=== PATIENT | male | born 2000 | race Caucasian/White ===

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

== ENCOUNTER 2022-07-27 12:11 | Outpatient (REF) | payer OTHER, SELFPAY ==
[2022-07-27 14:13] LABS: MANUAL DIFF FLAG NO
[2022-07-27 14:18] LABS: Basophils Percent Auto 0.5 % (0-2); Eosinophils Absolute Auto 0.4 X10*3/uL (0.0-0.4); Eosinophils Percent Auto 5.4 % (0-4); Hematocrit 43.7 % (42.0-52.0); Hemoglobin 14.6 g/dl (14.0-18.0); Imm Gran Abs Auto 0.02 X10*3/uL (0.00-0.03); Imm Gran Pct Auto 0.3 % (0.0-0.4); Lymphocytes Absolute Auto 2.3 X10*3/uL (1.2-4.9); Lymphocytes Percent Auto 35.8 % (20-40); Mean Corpuscular HGB Conc 33.4 g/dl (31.0-36.0); Mean Corpuscular Hemoglobin 28.8 pg (27.0-33.0); Mean Corpuscular Volume 86.2 fL (80.0-98.0); Mean Platelet Volume 9.4 fL (9.4-12.4); Monocytes Absolute Auto 0.5 X10*3/uL (0.1-1.2); Monocytes Percent Auto 7.7 % (2-11); Neutrophils Absolute Auto 3.3 x10*3/uL (2.0-8.3); Neutrophils Percent Auto 50.3 % (45-73); Platelet Count 339 X10*3/uL (160-400); Red Blood Count 5.07 X10*6/uL (4.60-5.80); Red Cell Distribution Width 12.1 % (11.0-16.0); White Blood Count 6.5 X10*3/uL (4.8-10.8)
[2022-07-27 14:30] LABS: Appearance Urine Clear; Color Urine Yellow; Glucose Urine UA Negative (Negative); Leukocyte Esterase Urine Negative (Negative); Nitrite Urine Negative (Negative); PH >= 9.0 (5.0-9.0); Urine Blood Negative (Negative); Urine Ketones Negative (Negative); Urine Protein Negative (Neg-Trace)
[2022-07-27 14:51] LABS: Alanine Aminotransferase 20 U/L (0-40); Albumin Level 5.1 g/dL (3.5-5.0); Alkaline Phosphatase 102 U/L (39-117); Anion Gap 16 (12-20); Aspartate Amino Transferase 21 U/L (5-37); Bilirubin Total 0.8 mg/dL (0.0-1.0); Blood Urea Nitrogen 10 mg/dL (9-16); Calcium 10.4 mg/dL (8.4-10.2); Carbon Dioxide 25 mmol/L (22-29); Chloride 106 mmol/L (96-108); Cholesterol 174 mg/dL; Estimated Glomerular Filt Rate > 60; Glucose Fasting 113 mg/dL (60-99); HDL Cholesterol 44 mg/dL; LDL Cholesterol Calculated 115 mg/dl; Sodium 143 mmol/L (135-145); Total Protein 8.1 g/dL (6.5-8.0); Triglycerides 75 mg/dL
[2022-07-27 14:53] LABS: TSH reflex Free T4 0.87 uIU/mL (0.32-4.0)
== END 2022-07-27 12:12 | disposition home or self-care (01) ==
LOC: HO.HMGCLDS 12:11
PROVIDERS: PCP Nurse Practitioner Family; Visit Provider Nurse Practitioner Family
DX: Z00.00 Encounter for general adult medical examination without abnormal findings (principal)
CPT/HCPCS: 36415; 80053; 80061; 81003; 84443; 85025

== ENCOUNTER 2023-04-28 08:19 | Outpatient (AMB) | payer OTHER, SELFPAY ==
[2023-04-28 08:27] VITALS: BP 130/78; PULSE 59; O2SAT 98; BMI 27.6
--- NOTE | 2023-04-28 08:27 | MHC.PC.OV ---
Vital Signs 04/28/23 08:27 Height 6 ft 1 in Weight 209 lb 4 oz BMI 27.6 BP 130/78 Blood Pressure Location Lt brachial Position Sitting Pulse 59 Pulse Source Pulse Oximeter Pulse Oximetry (%) 98 Oxygen Delivery Method Room Air Intake Visit Reasons: Medication follow up Allergies No Known Allergies [No Known Allergies*] Allergy (Verified 04/28/23 11:40) Medication List - Last Reconciled 04/28/23 [facility] albuterol sulfate 90 mcg/actuation 2 - 6 puffs inhalation Q4H PRN budesonide-formoterol 80-4.5 mcg/actuation (Symbicort) 2 puffs inhalation BID PRN montelukast 10 mg PO DAILY Tobacco use date assessed: 04/28/23 Dental Screening Dental Screen Date: 04/28/23 Did you have a dental visit in the last 12 months?: Yes Did you have a dental problem in the last 6 months where you did not have access to dental care?: No Was dental information given to patient?: Patient has dentist HPI Medication follow up HPI Details Anxiety/depression: Pt is no longer taking medication for this. He reports that his mother reacted well to duloxetine and he would like to try this. Will start 30mg. Pt was seeing a psychiatrist and will get back in with them. Pt reports that he also has a personality disorder. He has a therapist who he sees regularly. Denies any SI and HI. [facility] Medical History (Updated 04/28/23 @ 08:54 by JUDITH Shell) Anxiety Asthma Social History (System 07/27/22 @ 13:26 by Tonia Curry) Housing: House Patient Tobacco Use Status: Never used Tobacco e-Cigarette/Vaping Use: Never Used Second Hand Smoke Exposure: No service: No Current occupational status: employed Current occupation: [employer] Current occupational exposures/hazards: No Cognitive needs: No Hearing needs: No Vision needs: No Questionnaire Thrive Questionnaire Date Thrive assessed: 06/23/22 YOVANI-7 AMB Questionnaire YOVANI-7 Date YOVANI - 7 assessed: 06/23/22 Source: Developed by Drs. Jj Moulton, Nicolasa Mcgovern, Davey Haines and colleagues, with an educational sis from [employer]. Review of Systems Const Reports as per HPI Physical exam (Primary Care) Vital Signs: Last Vital Signs Pulse 59 04/28/23 08:27 BP 130/78 04/28/23 08:27 Pulse Ox 98 04/28/23 08:27 Oxygen Delivery Method Room Air 04/28/23 08:27 BMI result Body Mass Index 27.6 Tobacco/Smoking Status: Tobacco use Status Tobacco use date assessed 04/28/23 04/28/23 08:31 Patient Tobacco Use Status Never used Tobacco 04/28/23 08:31 e-Cigarette/Vaping Use Never Used 04/28/23 08:31 Thrive Assessment: Date of Thrive Assessment Date Thrive assessed 06/23/22 04/28/23 08:31 Const General: cooperative Orientation/consciousness: patient oriented x3 Resp Effort & Inspection: normal respiratory effort Auscultation: clear to auscultation bilaterally Cardio Rate: regular rate Rhythm: regular rhythm Heart sounds: S1 normal heart sound present and S2 normal heart sound present Neuro General: patient oriented x3 Psych Appearance: grossly normal Mental Status: mental status grossly normal Speech and movement: Normal speech and movement present Affect: normal affect Attitude: cooperative Thought process: Normal thought process present Thought content: Normal thought content present Insight: Good insight present (Psych) Judgement: Good judgement present (Psych) Assessment and Plan Assessment & Plan (1) Anxiety: Code(s): F41.9 - Anxiety disorder, unspecified (2) Depression: Code(s): F32.A - Depression, unspecified (3) Personality disorder: Code(s): F60.9 - Personality disorder, unspecified Plan The patient agreed to the use of a medical technologist microbiology for this encounter. Scribed for JUDITH Ansari by Swetha Vargas medical technologist microbiology, on 04/28/2023 at 08:50 EST. Orders: Orders Complete Blood Count Auto Diff Today Z00.00 - Encounter for general adult medical examination without abnormal findings Comprehensive [place]. Panel Fast Today Z00.00 - Encounter for general adult medical examination without abnormal findings TSH reflex Free T4 Today Z00.00 - Encounter for general adult medical examination without abnormal findings UA CC w/rflx Micro + Cult Today Z00.00 - Encounter for general adult medical examination without abnormal findings Lipid Panel Today Z00.00 - Encounter for general adult medical examination without abnormal findings Medications: New duloxetine 30 mg PO DAILY 30 caps 3RF Discontinued venlafaxine ER Discontinued Reason: No Longer Medically Relevant 150 mg PO DAILY 90 days 90 caps 0RF Coding Level of Care Code Est Pt Level 3 (55462) Diagnoses Anxiety F41.9 Depression F32.A Personality disorder F60.9
== END 2023-04-28 09:47 | disposition home or self-care (01) ==
PROVIDERS: Visit Provider Nurse Practitioner Family
DX: F41.9 Anxiety disorder, unspecified (principal); F32.A Depression, unspecified; F60.9 Personality disorder, unspecified
CPT/HCPCS: 99213

== ENCOUNTER 2023-06-28 11:34 | Outpatient (AMB) | payer OTHER, SELFPAY ==
[2023-06-28 11:55] VITALS: BP 132/88; PULSE 61; O2SAT 99; BMI 25.9
--- NOTE | 2023-06-28 11:55 | A.OFFPC_ITS ---
Vital Signs 06/28/23 11:55 Height 6 ft 1 in Weight 196 lb 8 oz BMI 25.9 BP 132/88 Blood Pressure Location Lt brachial Position Sitting Pulse 61 Pulse Source Pulse Oximeter Pulse Oximetry (%) 99 Oxygen Delivery Method Room Air Intake Visit Reasons: Annual PE Allergies No Known Allergies [No Known Allergies*] Allergy (Verified 06/28/23 11:57) Tobacco use date assessed: 06/28/23 Dental Screening Dental Screen Date: 06/28/23 Did you have a dental visit in the last 12 months?: Yes Did you have a dental problem in the last 6 months where you did not have access to dental care?: No Was dental information given to patient?: Patient has dentist HPI Annual PE HPI Details Pt is here for a PE. Will order labs. PFSH Medical History Asthma Anxiety Social History Housing: House Patient Tobacco Use Status: Never used Tobacco e-Cigarette/Vaping Use: Never Used Second Hand Smoke Exposure: No service: No Current occupational status: employed Current occupation: [employer] Current occupational exposures/hazards: No Cognitive needs: No Hearing needs: No Vision needs: No Questionnaire Thrive Questionnaire Date Thrive assessed: 06/23/22 YOVANI-7 AMB Questionnaire YOVANI-7 Date YOVANI - 7 assessed: 06/23/22 Source: Developed by Drs. Jj Moulton, Nicolasa Mcgovern, Davey Haines and colleagues, with an educational sis from [email or web address]. Review of Systems Const Denies chills and Denies fever(s) Eyes Denies blurry vision ENT Denies vertigo, Denies dizziness and Denies sore throat Card Denies chest pain at rest, Denies chest pain with activity, Denies diaphoresis, Denies dyspnea and Denies dyspnea on exertion Resp Denies cough, Denies dyspnea, Denies dyspnea on exertion and Denies wheezing GI Denies abdominal pain, Denies melena, Denies hematochezia, Denies constipation, Denies diarrhea and Denies loose stools Denies hematuria Musc Denies numbness and Denies tingling Skin/Breast Denies lesions Neuro Denies vertigo, Denies dizziness, Denies numbness and Denies tingling Psych Denies anxiety, Denies depression, Denies homicidal ideation, Denies suicidal ideation and Denies other (substance abuse) Aller/Immun Denies wheezing Physical exam (Primary Care) Vital Signs: Last Vital Signs Pulse 61 06/28/23 11:55 BP 132/88 06/28/23 11:55 Pulse Ox 99 06/28/23 11:55 Oxygen Delivery Method Room Air 06/28/23 11:55 BMI result Body Mass Index 25.9 Tobacco/Smoking Status: Tobacco use Status Tobacco use date assessed 06/28/23 06/28/23 11:59 Patient Tobacco Use Status Never used Tobacco 06/28/23 11:59 e-Cigarette/Vaping Use Never Used 06/28/23 11:59 Thrive Assessment: Date of Thrive Assessment Date Thrive assessed 06/23/22 06/28/23 11:59 Const General: cooperative Nutritional Appearance: well nourished Orientation/consciousness: patient oriented x3 HENMT Head: Yes normal to inspection, Yes normocephalic and Yes atraumatic Ears: TM's normal bilaterally Eyes General: appearance normal, both eyes and all related structures Alignment and Position: alignment normal and position normal Neck Neck: Yes normal visual inspection and Yes no lymphadenopathy Thyroid: Thyroid normal Resp Effort & Inspection: normal respiratory effort Auscultation: clear to auscultation bilaterally Cardio Rate: regular rate Rhythm: regular rhythm Heart sounds: S1 normal heart sound present, S2 normal heart sound present and no murmurs GI Palpation (GI): Soft to palpation and nontender Auscultation: normal bowel sounds Male General Exam: Yes normal external exam Penis: normal penis Scrotum: scrotum normal, testes descended bilaterally (small testicles noted bilat) and no inguinal hernias Testes: no testicular mass Skin Rashes: no rashes Neuro General: patient oriented x3, moves all extremities, no focal motor deficits and deep tendon reflexes 2+ bilaterally Romberg Test: Negative Psych Appearance: grossly normal Mental Status: mental status grossly normal Speech and movement: Normal speech and movement present Affect: normal affect Attitude: cooperative Thought process: Normal thought process present Thought content: Normal thought content present Insight: Good insight present (Psych) Judgement: Good judgement present (Psych) Assessment and Plan Assessment & Plan (1) Physical exam: Code(s): Z00.00 - Encounter for general adult medical examination without abnormal findings Plan The patient agreed to the use of a remote medical coder for this encounter. Scribed for JUDITH Ansari by Swetha Vargas remote medical coder, on 06/28/2023 at 12:10 EST Coding Level of Care Code Est Pt Level 3 (04812) Diagnoses Physical exam Z00.00
== END 2023-06-28 12:32 | disposition home or self-care (01) ==
PROVIDERS: Visit Provider Nurse Practitioner Family
DX: Z00.00 Encounter for general adult medical examination without abnormal findings (principal)
CPT/HCPCS: 99395

== ENCOUNTER 2023-11-08 14:27 | Outpatient (AMB) | payer OTHER, SELFPAY ==
[2023-11-08 14:30] VITALS: BP 140/80; PULSE 65; TEMP 36.8; O2SAT 98; BMI 24.7
--- NOTE | 2023-11-08 14:30 | AM.OFFWIN_ITS ---
Intake Vital Signs 11/08/23 14:30 Height 6 ft 1 in Weight 187 lb BMI 24.7 BP 140/80 H Blood Pressure Location Lt brachial Position Sitting Pulse 65 Pulse Source Pulse Oximeter Temp 98.3 F Temp Source Temporal Artery Scan Pulse Oximetry (%) 98 Oxygen Delivery Method Room Air Intake Visit Reasons: EP wheezing congestion fatigue 7 days Intake Note: pt is her today for wheezing congestion fatigue for 7 days Patient Tobacco Use Status: Never used Tobacco Allergies No Known Allergies [No Known Allergies*] Allergy (Verified 01/04/24 09:05) Medication List - Last Reconciled 11/08/23 by Shaka Gusman MD albuterol sulfate 90 mcg/actuation 2 - 6 puffs inhalation Q4H PRN amoxicillin-pot clavulanate 875-125 mg 1 tab PO BID budesonide-formoterol 80-4.5 mcg/actuation (Symbicort) 2 puffs inhalation BID duloxetine 30 mg PO DAILY prednisone 60 mg (3 x 20 mg) PO DAILY Do you need a note to return to daycare/school/sports/work: No HPI EP wheezing congestion fatigue 7 days HPI Details 23 yr old male presents to the office fo r a sick visit. He is reporting symptoms of wheezing, non productive cough. No fever or chills. History of Asthma. 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 [facility]LY [facility] Medical History (Updated 01/04/24 @ 09:42 by Ani Kraus, [facility]) Depression Personality disorder Asthma Anxiety Social History Housing: House Patient Tobacco Use Status: Never used Tobacco e-Cigarette/Vaping Use: Never Used Second Hand Smoke Exposure: No service: No Current occupational status: employed Current occupation: [employer] Current occupational exposures/hazards: No Cognitive needs: No Hearing needs: No Vision needs: No Physical Exam Vital Signs: Last Vital Signs Temp 98.3 F 11/08/23 14:30 Pulse 65 11/08/23 14:30 BP 140/80 H 11/08/23 14:30 Pulse Ox 98 11/08/23 14:30 Oxygen Delivery Method Room Air 11/08/23 14:30 BMI result Body Mass Index 24.7 Const General: cooperative and healthy appearing Nutritional Appearance: well nourished Orientation/consciousness: patient oriented x3 Limitations: no limitations HEENT Head: Yes normal to inspection Eyes General: appearance normal, both eyes and all related structures Neck Neck: Yes normal visual inspection Chest Chest palpation & inspection: normal palpation of entire chest wall Resp Other: Scattered wheezing bilaterally. Neuro General: patient oriented x3 Assessment & Plan Assessment & Plan (1) Asthma: Code(s): J45.909 - Unspecified asthma, uncomplicated Plan: Antibiotic called in. Prednisone dosage increased to 60 mg a day and steroid inhaler called in. If sx not better to follow up here. Medications: New prednisone 60 mg (3 x 20 mg) PO DAILY 9 tabs 0RF Changed From budesonide-formoterol 80-4.5 mcg/actuation 2 puffs inhalation BID PRN To budesonide-formoterol 80-4.5 mcg/actuation (Symbicort) 2 puffs inhalation BID 10.2 grams 0RF Coding Level of Care Code Est Pt Level 3 (56141) Diagnoses Asthma J45.909
== END 2023-11-08 15:00 | disposition home or self-care (01) ==
PROVIDERS: PCP Nurse Practitioner Family; Visit Provider Internal Medicine
DX: J45.909 Unspecified asthma, uncomplicated (principal)
CPT/HCPCS: 99213

== ENCOUNTER 2023-11-11 09:08 | Outpatient (AMB) | payer OTHER, SELFPAY ==
[2023-11-11 09:50] VITALS: BP 126/90; PULSE 80; TEMP 36.6; O2SAT 98; BMI 23.7
--- NOTE | 2023-11-11 09:50 | AM.OFFWIN_ITS ---
Intake Vital Signs 11/11/23 09:50 Height 6 ft 1 in Weight 180 lb BMI 23.7 BP 126/90 H Blood Pressure Location Lt brachial Position Sitting Pulse 80 Pulse Source Pulse Oximeter Temp 97.8 F Temp Source Temporal Artery Scan Pulse Oximetry (%) 98 Intake Visit Reasons: EST/chest pain/ trouble breathing(lobby) Intake Note: pt is here today for chest pain trouble breathing started 1 week ago Patient Tobacco Use Status: Never used Tobacco Allergies No Known Allergies [No Known Allergies*] Allergy (Verified 11/11/23 09:51) Do you need a note to return to daycare/school/sports/work: Yes HPI HPI Comments History of Present Illness Details 23 y/o male patient presents to walk in clinic with c/o SOB and chest pains x 1 week. H/o well controlled Asthma, now with exacerbation due to Dust (he was cleaning his garage) Pt was previously seen here (walk in clinic) and given Abx and steroids. He reports going to another a day later, because the medicine was not working. He was also seen by his Rn Ent at [facility], 11/09 who also prescribed more steroids (Oral/Systemic). Pt reports not taking any of those medications because he believes nothing is working for him. Chest Xray was ordered then, and came back negative for infection. He went to Emergency room yesterday night and waited 8 hours and left without being seen. Pt and mother very frustrated today, stating that no one wants to help them, he is having trouble breathing I'm actually trying to catch my breath now . The albuterol Inhaler and Treatments not working at all. Pt and mother are adamant that they don't want to go ED, only to sit there for 20 hours. [facility] Medical History Asthma Anxiety Social History Housing: House Patient Tobacco Use Status: Never used Tobacco e-Cigarette/Vaping Use: Never Used Second Hand Smoke Exposure: No service: No Current occupational status: employed Current occupation: [employer] Current occupational exposures/hazards: No Cognitive needs: No Hearing needs: No Vision needs: No Review of Systems Const All systems reviewed & are unremarkable except as noted in HPI and below Physical Exam Vital Signs: Last Vital Signs Temp 97.8 F 11/11/23 09:50 Pulse 80 11/11/23 09:50 BP 126/90 H 11/11/23 09:50 Pulse Ox 98 11/11/23 09:50 BMI result Body Mass Index 23.7 Const General: healthy appearing, comfortable and no acute distress Orientation/consciousness: patient oriented x3 HEENT Head: Yes normocephalic Resp Other: Patient able to talk in full complete sentences without runnning out of breath. SAT's 98% in room air. No signs of distress. Effort & Inspection: normal respiratory effort and able to speak in complete sentences Auscultation: wheezes scattered wheezes Cardio Rate: regular rate Rhythm: regular rhythm Neuro General: patient oriented x3 Gait exam (Neuro): Normal gait present Psych Appearance: grossly normal Speech and movement: Normal speech and movement present Affect: Indifferent affect present Thought content: Normal thought content present Assessment & Plan Assessment & Plan (1) Asthma: Code(s): J45.909 - Unspecified asthma, uncomplicated Qualifiers: Asthma severity: moderate Asthma persistence: persistent Asthma complication type: with acute exacerbation Qualified Code(s): J45.41 - Moderate persistent asthma with (acute) exacerbation Plan: - Advised Pt to go to ED for further testing, since non of the outpatient medications are working for him - Advised to take medications given in order to get better - No need for any additional medications from UC today. - Mother asking for DuoNeb for home use, since this is the only thing that worked in the past when she patient was toddler. Medications: New ipratropium-albuterol 20-100 mcg/actuation 1 puff inhalation Q6H 4 grams 0RF J45.41 - Moderate persistent asthma with (acute) exacerbation Coding Level of Care Code Est Pt Level 3 (38479) Diagnoses Moderate persistent asthma with acute exacerbation J45.41 Asthma severity: moderate Asthma persistence: persistent Asthma complication type: with acute exacerbation Time Spent (min) 15
== END 2023-11-11 11:05 | disposition home or self-care (01) ==
PROVIDERS: PCP Nurse Practitioner Family; Visit Provider Nurse Practitioner Family
DX: J45.41 Moderate persistent asthma with (acute) exacerbation (principal)
CPT/HCPCS: 99213

== ENCOUNTER 2023-11-11 12:18 | Emergency (ER) | payer OTHER, SELFPAY ==
--- NOTE | ~2023-11-11 | XR_ITS ---
EXAMINATION: XR CHEST CLINICAL INFORMATION: Difficulty breathing and wheezing COMPARISON: Previous chest x-ray September 2017 TECHNIQUE: 2 views of the chest were obtained. FINDINGS: No significant abnormality is noted involving the heart, lungs, mediastinum, bony thorax or soft tissues. XR/XR chest 2V IMPRESSION: Unremarkable examination.
--- NOTE | 2023-11-11 12:23 | ECG_ITS ---
Test Reason : CP/SOB Blood Pressure : / mmHG Vent. Rate : 067 BPM Atrial Rate : 067 BPM P-R Int : 146 ms QRS Dur : 090 ms QT Int : 368 ms P-R-T Axes : 061 075 028 degrees QTc Int : 388 ms Normal sinus rhythm Nonspecific T wave abnormality Abnormal ECG No previous ECGs available Referred By: Generic ED Physician Electronically Signed By:Moses Jameson
[2023-11-11 12:29] VITALS: BP 174/98; PULSE 71; O2SAT 98
[2023-11-11 12:40] VITALS: BP 142/80; PULSE 67; RESP 18; TEMP 36.1; O2SAT 97; BMI 23.3
--- NOTE | 2023-11-11 12:40 | ED_ITS ---
HPI - General Adult General Chief complaint: General Medical Stated complaint: CHEST PAIN SOB X 10 DAYS Time Seen by Provider: 11/11/23 17:36 Source: patient Mode of arrival: ambulatory Limitations: no limitations History of Present Illness HPI narrative: Patient comes accompanied by his mother complaining of shortness of breath for 10 days, chest pain right in the sternal area which gets worse with deep inspiration. Patient states he is known to have asthma, has been taking prednisone for about 10 days and has been using albuterol nebulization treatments. Patient also reports sore throat Related Data Home Medications Medication Instructions Recorded Confirmed albuterol sulfate 90 mcg/actuation 2 - 6 puff inhalation Q4H PRN 06/23/22 11/08/23 aerosol inhaler wheezing Previous Rx's Medication Instructions Recorded duloxetine 30 mg capsule,delayed 30 mg PO DAILY #30 caps 04/28/23 release budesonide-formoterol HFA 80 2 puff inhalation BID #10.2 grams 11/08/23 mcg-4.5 mcg/actuation aerosol inhaler (Symbicort) ipratropium 20 mcg-albuterol 100 1 puff inhalation Q6H #4 grams 11/11/23 mcg/actuation mist for inhalation Allergies Allergy/AdvReac Type Severity Reaction Status Date / Time No Known Allergies Allergy Verified 11/11/23 09:51 [No Known Allergies*] Review of Systems 2 Review of Systems: Constitutional : No Weight loss, No Fever, No Chills, No Night Sweats, No Fatigue, No Malaise ENT/Mouth : No Hearing loss, No Ear Pain, No Nasal Congestion, No Sinus Pain, No Hoarseness, No sore throat, No Rhinorrhea, No Swallowing Difficulty Eyes: No Eye Pain, No Swelling, No Redness, No Foreign Body, No Discharge, No Vision Changes Cardiovascular : Complaining of substernal chest pain with inspiration, No SOB, No Dyspnea on Exertion, No Orthopnea, No Edema, No Palpitations Respiratory : Complaining of cough, wheezing, dyspnea Gastrointestinal : No Nausea, No Vomiting, No Diarrhea, No Constipation, No abdominal Pain, No Hematochezia, No Melena Genitourinary : no irregular bleeding, No Dysuria, No Urinary Frequency, No Hematuria, No Urinary Incontinence, No Urgency, No Flank Pain, No Urinary Flow Changes, No Hesitancy Musculoskeletal : No joint pain, No Myalgias, No Joint Swelling Skin : No Skin Lesions, No rash Neuro : No Weakness, No Numbness, No Paresthesias, No Loss of Consciousness, No Dizziness, No Headache Psych : No Anxiety/Panic, No Depression, No SI/HI/AH/VH, No Social Issues, Heme/Lymph: No Bruising, No Bleeding,No Lymphadenopathy Endocrine : No Polyuria, No Polydipsia, No Temperature Intolerance [facility] Past Medical History Medical History Asthma Anxiety Social History Social History Housing: House Patient Tobacco Use Status: Never used Tobacco e-Cigarette/Vaping Use: Never Used Second Hand Smoke Exposure: No Advance Directives: No Advance Directives Information Provided: No service: No Current occupational status: employed Current occupation: [employer] Current occupational exposures/hazards: No Cognitive needs: No Hearing needs: No Vision needs: No Physical Exam ED Vital Signs: Vital Signs - 24 hr 11/11/23 12:40 11/11/23 17:24 11/11/23 18:01 Temperature 97 F 97.3 F Pulse Rate 67 84 74 Respiratory Rate 18 18 12 Blood Pressure 142/80 H 146/76 H Pulse Oximetry 97 99 Oxygen Delivery Method Room Air Room Air 11/11/23 18:43 Temperature 98.1 F Pulse Rate 60 Respiratory Rate 18 Blood Pressure 149/87 H Pulse Oximetry 100 Oxygen Delivery Method Room Air BMI result Body Mass Index 23.3 Const Other: Appearance: Alert. Oriented X3. No acute distress. Well-appearing Eyes: Pupils equal, round and reactive to light. ENT: Pharynx normal. Neck: Normal inspection. Neck supple. No lymph nodes noted. No crepitus CVS: Normal heart rate and rhythm. Pulses normal. Normal S1 and S2, reproducible chest pain to mild palpation over the sternum Respiratory: No respiratory distress. Breath sounds normal. Patient having forceful inspiratory wheezing at the throat level, no expiratory wheezing in the lungs Abdomen: Soft and nontender. No rigidity. No distention. Skin: Skin warm and dry. Normal skin color. Normal skin turgor. Extremities: No lower extremity edema. No Lacerations. No Rash Neuro: Oriented X 3. No motor deficit. No sensory deficit. Moving all extremities. No slurred speech. CN 2 through 12 grossly intact Psych: calm, cooperative, anxious Course Course Course Narrative: RME:? 23 yo male with hx of asthma, depression, anxiety, personality disorder here for evaluation of chest pain and difficulty breathing x10 days. Now reports difficulty swallowing . Per mother, he has been worked up by PCP, silica spray mixer and was seen at [facility] ED last night. They did not stay for results. Called silica spray mixer today who told them to come to the ED for clot r/o. Has been using daily Symbicort, albuterol rescue inhaler, and nebulizer every 6 hours without improvement. last used albuterol at 4:00 a.m. today. No recent travel or long car rides. Denies calf pain, palpitations. Endorses smoking marijuana for 3 years. Quit a few months ago. Denies tobacco use or vaping. Vitals WNL. Bilateral wheezes and rhonchi. Airway patent. Posterior oropharynx without erythema or edema. Uvula midline. Controlling secretions and speaking complete sentences. Labs, COVID swab, EKG, chest x-ray ordered Full HPI, ROS and PE to be performed by the primary ED provider. Medications Administered Discontinued Medications Generic Name Dose Route Start Last Admin Trade Name Freq PRN Reason Stop Dose Admin Albuterol Sulfate 2.5 mg 11/11/23 17:49 11/11/23 18:01 Albuterol Sulfate (0.083%) 2.5 Mg/3 Ml Vial.Neb INHALE 11/11/23 17:50 2.5 mg ONCE ONE Administration Methylprednisolone Sodium Succinate 125 mg 11/11/23 17:50 11/11/23 18:23 Methylprednisolone Sod Succ 125 Mg/2 Ml Vial IVPUSH 11/11/23 17:51 125 mg ONCE ONE Administration Medical Decision Making Medical Decision Making [facility] Narrative: -on physical exam, patient is well-appearing, oxygen saturation 99% on room air. Patient's lungs are completely clear, no wheezing. Seems that patient is forcing himself to wheeze as the wheezing versus come from the throat rather from the lungs. Strep test is negative -my interpretation of chest x-ray: No infiltrates -my interpretation of EKG: Normal sinus rhythm, heart rate 67, no ST segment depression or elevation, nonspecific T-wave inversion in lead 3, QTC 388 -my interpretation of labs, patient's white blood cell count 13.9, likely secondary to 10 days of prednisone use. D-dimer negative, troponin negative, C- reactive protein negative, ESR negative, serology test negative for COVID -patient's seems to be very anxious, patient's mother even more so. Per patient's mother's request, we will give him 1 dose of Solu-Medrol and 1 neb treatment -patient will follow-up with his silica spray mixer -patient was given a prescription of prednisone 2 days ago, patient still has 4 more days to go. Also, on November 09, patient was given a large prescription of albuterol for his nebulizer and pumps Differential Diagnosis Differential Diagnoses: The differential diagnosis associated with the presentation includes (Viral illness, pneumonia, pleurisy) Lab Data MDM Lab Attestation statement: I reviewed the patient's lab results. 11/11/23 14:03 Labs: Lab Results 11/11/23 11/11/23 11/11/23 Range/Units 14:03 17:36 18:46 WBC 13.9 H (4.8-10.8) X10*3/uL RBC 4.92 (4.60-5.80) X10*6/uL Hgb 14.9 (14.0-18.0) g/dl Hct 42.3 (42.0-52.0) % MCV 86.0 (80.0-98.0) fL MCH 30.3 (27.0-33.0) pg MCHC 35.2 (31.0-36.0) g/dl RDW 12.4 (11.0-16.0) % Plt Count 372 (160-400) X10*3/uL MPV 9.2 L (9.4-12.4) fL Immature Gran % (Auto) 0.4 (0.0-0.4) % Neut % (Auto) 55.3 (45-73) % Lymph % (Auto) 34.4 (20-40) % [place] % (Auto) 8.6 (2-11) % Eos % (Auto) 0.9 (0-4) % Baso % (Auto) 0.4 (0-2) % Lymph # (Auto) 4.8 (1.2-4.9) X10*3/uL [place] # (Auto) 1.2 (0.1-1.2) X10*3/uL Eos # (Auto) 0.1 (0.0-0.4) X10*3/uL Baso # (Auto) 0.1 (0.0-0.2) X10*3/uL Abs Immat Gran (auto) 0.05 H (0.00-0.03) X10*3/uL Absolute Neuts (auto) 7.7 (2.0-8.3) x10*3/uL Absolute Nucleated RBC 0.000 (0.0-0.012) X10*3/uL Nucleated RBC % (auto) 0.0 (0.0-0.2) /100WBC ESR 2 (0-15) MM/HR PT 13.0 (11.1-13.3) SEC INR 1.1 (0.9-1.1) D-Dimer High Sensitivty < 150 NG/ML Troponin I High Sens 10.1 11.1 (<3.5-35.0) ng/L C-Reactive Protein 0.13 (< or = 0.50) mg/dL COVID-19 (DANTE) Negative (Negative) COVID-19 Clin Com See Note S. pyogenes GrpA FERNANDO Negative (Negative) Independent Interpretation I performed an independent interpretation of an: EKG and Plain X-Ray Radiology Impression Discussion of test interpretation with radiology: I have reviewed the radiologist's reading. Radiologist Impression: FINDINGS: No significant abnormality is noted involving the heart, lungs, mediastinum, bony thorax or soft tissues. XR/XR chest 2V IMPRESSION: Unremarkable examination. Independent Historian Clinical information obtained from an independent historian. History obtained from or confirmed by: Parent Chronic Conditions Patient?s care impacted by: Other (Asthma) Discharge Plan Discharge Clinical Impression: Asthma, Pleurisy Patient Disposition: Home, Self-Care Instructions: Asthma (ED) Additional Instructions: I have personally provided critical care time. Time includes review of lab data, radiology results, discussion with consultants, and monitoring for potential decompensation. Intervention performed as documented. Prescriptions: No Action budesonide-formoterol [Symbicort] 80-4.5 mcg/actuation HFA aerosol inhaler 2 puff inhalation BID Qty: 10.2 0RF ipratropium-albuterol 20-100 mcg/actuation mist 1 puff inhalation Q6H Qty: 4 0RF albuterol sulfate 90 mcg/actuation HFA aerosol inhaler 2 - 6 puff inhalation Q4H PRN (Reason: wheezing) duloxetine 30 mg capsule,delayed release(DR/EC) 30 mg PO DAILY Qty: 30 3RF
[2023-11-11 14:13] LABS: MANUAL DIFF FLAG NO
[2023-11-11 14:16] LABS: Basophils Absolute Auto 0.1 X10*3/uL (0.0-0.2); Basophils Percent Auto 0.4 % (0-2); Eosinophils Absolute Auto 0.1 X10*3/uL (0.0-0.4); Eosinophils Percent Auto 0.9 % (0-4); Hematocrit 42.3 % (42.0-52.0); Hemoglobin 14.9 g/dl (14.0-18.0); Imm Gran Abs Auto 0.05 X10*3/uL (0.00-0.03); Imm Gran Pct Auto 0.4 % (0.0-0.4); Lymphocytes Absolute Auto 4.8 X10*3/uL (1.2-4.9); Lymphocytes Percent Auto 34.4 % (20-40); Mean Corpuscular HGB Conc 35.2 g/dl (31.0-36.0); Mean Corpuscular Hemoglobin 30.3 pg (27.0-33.0); Mean Platelet Volume 9.2 fL (9.4-12.4); Monocytes Absolute Auto 1.2 X10*3/uL (0.1-1.2); Monocytes Percent Auto 8.6 % (2-11); Neutrophils Absolute Auto 7.7 x10*3/uL (2.0-8.3); Neutrophils Percent Auto 55.3 % (45-73); Platelet Count 372 X10*3/uL (160-400); Red Blood Count 4.92 X10*6/uL (4.60-5.80); Red Cell Distribution Width 12.4 % (11.0-16.0); White Blood Count 13.9 X10*3/uL (4.8-10.8)
[2023-11-11 14:21] LABS: INTERNATIONAL NORM RATIO 1.1 (0.9-1.1)
[2023-11-11 14:23] LABS: D Dimer High Sensitivity < 150 NG/ML
[2023-11-11 14:29] LABS: COVID-19 Test Negative (Negative); IDNOW Serial# 9DB6401D
[2023-11-11 14:37] LABS: C Reactive Protein 0.13 mg/dL (< or = 0.50)
[2023-11-11 14:47] LABS: Troponin-I High Sensitivity 10.1 ng/L (<3.5-35.0)
[2023-11-11 14:58] LABS: Erythrocyte Sedimentation Rate 2 MM/HR (0-15)
[2023-11-11 17:24] VITALS: BP 146/76; PULSE 84; RESP 18; TEMP 36.3; O2SAT 99
[2023-11-11 18:01] VITALS: PULSE 74; RESP 12; O2SAT 99
[2023-11-11] MEDS: Albuterol Sulfate (0.083%) 2.5 MG/3 ML VIAL.NEB INHALE (18:01)
[2023-11-11 18:02] LABS: Troponin-I High Sensitivity 11.1 ng/L (<3.5-35.0)
[2023-11-11] MEDS: methylPREDNISolone Sod Succ 125 MG/2 ML VIAL IVPUSH (18:23)
[2023-11-11 18:43] VITALS: BP 149/87; PULSE 60; RESP 18; TEMP 36.7; O2SAT 100
[2023-11-11 19:05] LABS: IDNOW Serial# 08D9AD1C; Strep A Nucleic Acid Negative (Negative)
== END 2023-11-11 19:57 | disposition home or self-care (01) ==
PROVIDERS: Physician Assistant Medical; Emergency Provider Emergency Medicine
DX: R07.89 Other chest pain (principal); R06.02 Shortness of breath; J45.909 Unspecified asthma, uncomplicated; R09.1 Pleurisy; Z11.52 Encounter for screening for COVID-19; Z79.899 Other long term (current) drug therapy
CPT/HCPCS: 36415; 71046; 84484; 85025; 85379; 85610; 85652; 86140; 87635; 87651; 93005; 94640; 96374; 99284; J2930

== ENCOUNTER → 2023-11-11 12:23 | Outpatient (BNV) | payer OTHER, SELFPAY | PROVIDERS: Visit Provider Internal Medicine Cardiovascular Disease | DX: R94.31 Abnormal electrocardiogram [ECG] [EKG] (principal) | CPT/HCPCS: 93010 ==

== ENCOUNTER 2024-01-04 08:31 | Outpatient (AMB) | payer OTHER, SELFPAY ==
--- NOTE | 2024-01-04 08:35 | MHC.PC.OV ---
Vital Signs 01/04/24 08:41 Height 6 ft 1.23 in Weight 182 lb 4 oz BMI 23.9 BP 128/66 Blood Pressure Location Rt brachial Position Sitting Respiration 14 Pulse 62 Pulse Source Pulse Oximeter Temp 97.9 F Temp Source Temporal Artery Scan Pulse Oximetry (%) 97 Oxygen Delivery Method Room Air Intake Visit Reasons: Transfer care from [facility] Note: New patient visit Electronic Resources Librarian Required: No Allergies No Known Allergies [No Known Allergies*] Allergy (Verified 01/04/24 09:05) Medication List - Last Reconciled 01/04/24 by Ani Kraus, KAYLYNN-HALEY budesonide-formoterol 80-4.5 mcg/actuation (Symbicort) 2 puffs inhalation BID duloxetine 60 mg PO DAILY ipratropium-albuterol 20-100 mcg/actuation 1 puff inhalation Q6H montelukast (Singulair) 10 mg PO BEDTIME Tobacco use date assessed: 01/04/24 Dental Screening Dental Screen Date: 01/04/24 Did you have a dental visit in the last 12 months?: Yes Did you have a dental problem in the last 6 months where you did not have access to dental care?: No Was dental information given to patient?: Patient has dentist HPI HPI Comments History of Present Illness Details 23-year-old with generalized anxiety disorder, MDD, asthma Specialists: Counselor Pulm - annual visits only Health Maintenance: Vaccines - Flu today Here today to [facility] care Asthma is well controlled; exercises QD; has Neb but doesnt like to use s/t side effects. Does not have a HFA; did have Combivent RXd 10/2023 but ran out. Reports it worked well for him. Has singulair but has run out. Feels this has also helped well. MDD/YOVANI on Cymbalta. Active w/ counselor. Has trouble sleeping at night. Has lots of anxiety and perseveration of thoughts that occur at bedtime. Using [id number] sleep aid. Reports without this he has not able to go to bed until around 04:00. [facility] Medical History (Updated 01/04/24 @ 09:42 by KAYLYNN Zavala-HALEY) Depression Personality disorder Asthma Anxiety Social History Housing: House Patient Tobacco Use Status: Never used Tobacco e-Cigarette/Vaping Use: Never Used Second Hand Smoke Exposure: No service: No Current occupational status: employed Current occupation: [employer] Current occupational exposures/hazards: No Cognitive needs: No Hearing needs: No Vision needs: No Questionnaire PHQ-9 Over the last 2 weeks, how often have you been bothered by any of the following problems? 1. Little interest or pleasure in doing things: several days 2. Feeling down, depressed, or hopeless: several days 3. Trouble falling or staying asleep, or sleeping too much: more than half the days 4. Feeling tired or having little energy: not at all 5. Poor appetite or overeating: not at all 6. Feeling bad about yourself - or that you are a failure or have let yourself or your family down: not at all 7. Trouble concentrating on things, such as reading the newspaper or watching television: not at all 8. Moving or speaking so slowly that other people could have noticed. Or the opposite - being so fidgety or restless that you have been moving around a lot more than usual: not at all 9. Thoughts that you would be better off or of hurting yourself in some way: not at all Total score: 4 Depression Screening Interpretation: Positive Depression Screening Follow-up: Existing condition Depression Screening Done: Yes 83907 - PHQ-9 Billing: Yes Source: Developed by Drs. Jj Moulton, Nicolasa Mcgovern, Davey Haines and colleagues, with an educational sis from [employer]. Thrive Questionnaire Date Thrive assessed: 01/04/24 I am a: Patient What is your living situation today?: I have a steady place to live Within the past 12 months, did the food you bought not last and you didn't have the money to get more?: Never true Within the past 12 months, did you worry whether your food would run out before you got money to buy more?: Never true Do you have trouble paying for medicines?: No Do you have trouble getting transportation to medical appointments?: No Do you have trouble paying your heating and electricity bill?: No Do you have trouble taking care of your child, family member or friend?: No Do you have trouble with day-to-day activities such as bathing, preparing meals, shopping, managing finances, etc.?: No Are you currently unemployed and looking for a job?: No Are you interested in more education?: No Please select the resources that you would like help with: None Currently or been in a relationship where the following occur: no concerns reported THRIVE Score: 0 AUDIT C Alcohol Use Questionnaire (AUDIT-C) 1. How often do you have a drink containing alcohol?: Never 2. How many drinks containing alcohol do you have on a typical day when you are drinking?: 1 or 2 3. How often do you have six or more drinks on one occasion?: Never Total Score: 0 Score Reviewed/Action Taken: Yes YOVANI-7 AMB Questionnaire YOVANI-7 Date YOVANI - 7 assessed: 01/04/24 Feeling nervous, anxious, or on edge: 2 = More than half the days Not being able to stop or control worryin = More than half the days Worrying too much about different things: 0 = Not at all Trouble relaxin = Several days Being so restless that it is hard to sit still: 1 = Several days Becoming easily annoyed or irritable: 1 = Several days Feeling afraid as if something awful might happen: 1 = Several days Total YOVANI-7 score (0-4 normal; 5-9 mild; 10-14 moderate; 15-21 severe): 8 Source: Developed by Drs. Jj Moulton, Nicolasa Mcgovern, Davey Haines and colleagues, with an educational sis from [employer]. YOVANI-7 Assessment Billing YOVANI-7 Assessment Tool: YOVANI-7 Assessment 59637 ACT Questionnaire In the past 4 weeks, how much of the time did your asthma keep you from getting as much done at work, school or at home?: Most of the time During the past 4 weeks, how often have you had shortness of breath?: 3-6 times a week During the past 4 weeks, how often did your asthma symptoms wake you up at night or earlier than usual in the morning?: 2-3 nights a week During the past 4 weeks, how often have you had to use your rescue inhaler or nebulizer medication?: More than 3 times per day How would you rate your asthma control during the past 4 weeks?: Somewhat controlled ACT Interpretation: Positive ACT Branch: Change in medication Score: 11 Review of Systems Const All systems reviewed & are unremarkable except as noted in HPI and below Physical exam (Primary Care) Vital Signs: Last Vital Signs Temp 97.9 F 01/04/24 08:41 Pulse 62 01/04/24 08:41 Resp 14 01/04/24 08:41 BP 128/66 01/04/24 08:41 Pulse Ox 97 01/04/24 08:41 Oxygen Delivery Method Room Air 01/04/24 08:41 BMI result Body Mass Index 23.9 Tobacco/Smoking Status: Tobacco use Status Tobacco use date assessed 01/04/24 01/04/24 08:39 Patient Tobacco Use Status Never used Tobacco 01/04/24 08:39 e-Cigarette/Vaping Use Never Used 01/04/24 08:39 PHQ-9: PHQ-9 Score PHQ-9: Total score 4 01/04/24 09:28 Depression Screening Interpretation: Positive Depression Screening Follow-up: Existing condition Thrive Assessment: Date of Thrive Assessment Date Thrive assessed 01/04/24 01/04/24 08:49 Currently or been in a relationship where the following occur: no concerns reported Office Procedures Flu Questionnaire Does the patient have a severe egg allergy?: No Does the patient have severe life threatening allergies?: No Does the patient have a fever or illness today?: No Has the patient ever had Guillain-[place] Syndrome?: No Has the patient ever had any past reaction to a flu shot?: No Immunizations flu vacc [id number] 6mos up(PF) 60 mcg(15 mcgx4)/0.5 mL IM syringe Performing Provider: JUDITH Zavala Performing Location: [facility] [place] Family Medicine Administered by: Idalia Mishra CMA on 01/04/24 09:31 Dose Route Admin Location Dispensed Lot Number Expiration Date NDC Consulting Utility Forester 0.5 mL IM Right Deltoid 0.5 mL [id number] 03/25/24 [id number] linkedü VIS Given Date VIS Provided VIS Publication Date 01/04/24 Single Vaccine 21 Eligibility Eligibility Date Funding Source Not VFC Eligible 01/04/24 Private Assessment and Plan Assessment & Plan (1) Asthma: Comment: on Symbicort 80/4.5 2 puffs QD & singulair 10mg QHS and Zyrtec 10 mg QD Start Combivent 1 puff QID Flu shot today Active W/ Pulm Code(s): J45.909 - Unspecified asthma, uncomplicated Qualifiers: Asthma complication type: uncomplicated Asthma persistence: persistent Asthma severity: moderate Qualified Code(s): J45.40 - Moderate persistent asthma, uncomplicated (2) MDD (major depressive disorder), recurrent episode: Comment: on Cymbalta 60 mg QD Continue counseling Code(s): F33.9 - Major depressive disorder, recurrent, unspecified Qualifiers: Major depression episode severity: moderate Qualified Code(s): F33.1 - Major depressive disorder, recurrent, moderate (3) Anxiety: Comment: on Cymbalta 60mg QD Plan: Start hydroxyzine 50 mg p.r.n. at bedtime to help with anxiety as well as insomnia. Continue counseling Code(s): F41.9 - Anxiety disorder, unspecified Plan This note is constructed using voice recognition software. While every effort has been made to ensure accuracy in textile slitting machine operator, still errors may have been included Sometimes, these errors may affect the content or meaning of the given sentence . Total time spent caring for the patient today was 45 minutes. This includes time spent before the visit reviewing the chart, time spent during the visit, and time spent after the visit on documentation Orders: Orders Influenza [id number] Immunization Today Z23 - Encounter for immunization Medications: New montelukast (Singulair) 10 mg PO BEDTIME 90 tabs 0RF ipratropium-albuterol 20-100 mcg/actuation (Combivent Respimat) space evenly during waking hours 1 puff inhalation QID 4 grams 3RF hydroxyzine HCl 50 mg PO BEDTIME PRN 30 tabs 0RF insomnia/anxiety Refilled duloxetine 60 mg PO DAILY 30 caps 1RF Discontinued ipratropium-albuterol 20-100 mcg/actuation Discontinued Reason: Duplicate 1 puff inhalation Q6H 4 grams 0RF J45.41 - Moderate persistent asthma with (acute) exacerbation Patient Instructions: Return to office in 4 weeks to follow up on asthma control, anxiety, insomnia sooner as needed Coding Level of Care Code Est Pt Level 5 (78616) Diagnoses Moderate persistent asthma without complication J45.40 Asthma complication type: uncomplicated Asthma persistence: persistent Asthma severity: moderate Moderate episode of recurrent major depressive disorder F33.1 Major depression episode severity: moderate Anxiety F41.9 Additional Codes YOVANI-7 Assessment Billing - YOVANI-7 Assessment Tool: YOVANI-7 Assessment [id number] ([id number])
[2024-01-04 08:41] VITALS: BP 128/66; PULSE 62; RESP 14; TEMP 36.6; O2SAT 97; BMI 23.9
== END 2024-01-04 09:35 | disposition home or self-care (01) ==
PROVIDERS: PCP Nurse Practitioner Family; Visit Provider Nurse Practitioner Family
DX: J45.40 Moderate persistent asthma, uncomplicated (principal); F33.1 Major depressive disorder, recurrent, moderate; F41.9 Anxiety disorder, unspecified; Z23 Encounter for immunization
CPT/HCPCS: 90471; 90686; 99215

== ENCOUNTER 2024-03-27 13:43 | Outpatient (AMB) | payer BC, SELFPAY ==
[2024-03-27 13:46] VITALS: BP 120/78; PULSE 68; RESP 15; TEMP 36.1; O2SAT 99; BMI 23.9
--- NOTE | 2024-03-27 13:46 | A.OFFPC_ITS ---
Vital Signs 03/27/24 13:46 Height 6 ft 1.23 in Weight 182 lb 8 oz BMI 23.9 BP 120/78 Blood Pressure Location Rt brachial Position Sitting Respiration 15 Pulse 68 Pulse Source Pulse Oximeter Temp 97 F Temp Source Temporal Artery Scan Pulse Oximetry (%) 99 Oxygen Delivery Method Room Air Intake Visit Reasons: Anxiety attacks Intake Note: Patient states that he has been missing work due to anxiety getting worse. Patient states he gets really bad palpations and heart will start racing and its hard for him to breathe. Patient hsd been struggling with sleep as well. 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 Accompanied by: Self / Same As Patient Allergies No Known Allergies [No Known Allergies*] Allergy (Verified 03/27/24 13:52) Medication List - Last Reconciled 03/27/24 by KAYLYNN Zavala- budesonide-formoterol 80-4.5 mcg/actuation (Symbicort) 2 puffs inhalation BID duloxetine 60 mg PO DAILY ipratropium-albuterol 20-100 mcg/actuation (Combivent Respimat) 1 puff inhalation QID montelukast (Singulair) 10 mg PO BEDTIME Tobacco use date assessed: 01/04/24 Dental Screening Dental Screen Date: 01/04/24 HPI HPI Comments History of Present Illness Details 23-year-old with generalized anxiety dis order, MDD, asthma Here today w/ acute on chronic YOVANI Working a lot, environment is hot having anxiety that presents as pain in chest and racing heart and felt like could not breath missed work x 2 days as a result of this feels like onset of his anxiety occurs w/in 1 hour of arrival to work admits at baseline feels like he will have an anxiety attack meditates, goes for walks w/o relief Feels hard to even leave the house as he feels so anxious has not been eating as a result of his anxiety Taking duloxetine QD Grandmother 2 days ago Stressors with Dad Was blown off in a relationship and this was hurtful admits some impulsively at times used marijuana to help his nerves 4 months ago, but not currently Remains active w/ counselor - states he is aware of the above does not recall being on any other meds in the past -- hydroxyzine 50mg listed previously, was taking at bedtime, however stopped as he started working at 0530 and felt drowsy when taking it. Exam: Awake alert mildly anxious appearing, good eye contact, mildly rapid speech RRR LS CTAB Plan: Discuss lowering the hydroxyzine dose to be used at bedtime and an even lower dose to be used during the day for acute panic. He does not want to do this as he does not feel like it is affective. Tells me that he has used it during the day and does not work. At this time the plan will be to check his labs, wait for the results and send a medication to help with his anxiety with a close follow up next week. Sooner as needed. Crisis information reviewed with him today and given to him upon discharge. 03/28/24 0719 Labs reviewed and WNL. UTox + for cannibas only. PLAN: Start buspar 10mg po TID. RX sent. FU in 1 week, sooner as needed. [facility] Medical History (Updated 03/27/24 @ 14:25 by Ani Kraus, [facility]) Depression Personality disorder Asthma Anxiety Surgical History (Updated 03/27/24 @ 13:53 by Philly Luciano [facility]) No pertinent past surgical history Social History Housing: House Patient Tobacco Use Status: Never used Tobacco e-Cigarette/Vaping Use: Never Used Second Hand Smoke Exposure: No service: No Current occupational status: employed [place] [employer] [place] occupational exposures/hazards: No Cognitive needs: No Hearing needs: No Vision needs: No Questionnaire Thrive Questionnaire Date Thrive assessed: 01/04/24 YOVANI-7 AMB Questionnaire YOVANI-7 Date YOVANI - 7 assessed: 03/27/24 Feeling nervous, anxious, or on edge: 3 = Nearly every day Not being able to stop or control worryin = Nearly every day Worrying too much about different things: 3 = Nearly every day Trouble relaxin = Nearly every day Being so restless that it is hard to sit still: 3 = Nearly every day Becoming easily annoyed or irritable: 3 = Nearly every day Feeling afraid as if something awful might happen: 3 = Nearly every day Total YOVANI-7 score (0-4 normal; 5-9 mild; 10-14 moderate; 15-21 severe): 21 Source: Developed by Drs. Jj Moulton, Nicolasa Mcgovern, Davey Haines and colleagues, with an educational sis from [employer]. YOVANI-7 Assessment Billing YOVANI-7 Assessment Tool: YOVANI-7 Assessment 22926 Physical exam (Primary Care) Vital Signs: Last Vital Signs Temp 97 F 03/27/24 13:46 Pulse 68 03/27/24 13:46 Resp 15 03/27/24 13:46 BP 120/78 03/27/24 13:46 Pulse Ox 99 03/27/24 13:46 Oxygen Delivery Method Room Air 03/27/24 13:46 BMI result Body Mass Index 23.9 Tobacco/Smoking Status: Tobacco use Status Tobacco use date assessed 01/04/24 03/27/24 13:52 Patient Tobacco Use Status Never used Tobacco 03/27/24 13:52 e-Cigarette/Vaping Use Never Used 03/27/24 13:52 Thrive Assessment: Date of Thrive Assessment Date Thrive assessed 01/04/24 03/27/24 13:52 Assessment and Plan Assessment & Plan (1) Anxiety: Comment: on Cymbalta 60mg QD Continue counseling Code(s): F41.9 - Anxiety disorder, unspecified Plan This note is constructed using voice recognition software. While every effort has been made to ensure accuracy in commercial lines sales executive, still errors may have been included Sometimes, these errors may affect the content or meaning of the given sentence . Total time spent caring for the patient today was 45 minutes. This includes time spent before the visit reviewing the chart, time spent during the visit, and time spent after the visit on documentation Orders: Orders Comprehensive Met. Panel 03/27/24 F41.9 - Anxiety disorder, unspecified Hemoglobin A1c 03/27/24 F41.9 - Anxiety disorder, unspecified TSH reflex Free T4 03/27/24 F41.9 - Anxiety disorder, unspecified Lipid Panel 03/27/24 F41.9 - Anxiety disorder, unspecified Drug Screen Urine 03/27/24 F41.9 - Anxiety disorder, unspecified Phosphorus 03/27/24 F41.9 - Anxiety disorder, unspecified Complete Blood Count no Diff 03/27/24 F41.9 - Anxiety disorder, unspecified Vitamin B12 and Folate 03/27/24 F41.9 - Anxiety disorder, unspecified Magnesium 03/27/24 F41.9 - Anxiety disorder, unspecified Medications: New buspirone 10 mg PO TID 30 tabs 0RF Patient Instructions: Crisis Hotlines Suicide prevention, domestic violence, and other crisis hotlines for youth, yo carolynn adults, and their friends and families. [facility] Safeline helps youth who have run away, are thinking about running away, or who already ran away but are ready to come home. Parents and guardians can also contact the hotline if they are worried about their child running away or if their child has already left home. The hotline is available 24 hours a day, seven days a week. Youth, parents, and guardians can also use the online chat feature on the [facility]'s website to ask for help and get support, or can send a text to [address]41. [facility] National Suicide Prevention Lifeline: The [place] Suicide Prevention Lifeline is a network of local crisis centers that are available 18/04 to provide support for youth and adults who are in any kind of emotional crisis. In addition to the main hotline number listed above, there are several other numbers to call depending on your needs: Belgian Language: Deaf and Hard of Hearin1-243.338.7324 Veterans: Disaster Distress: Anyone can also use their online chat feature on their website. [place] Suicide Prevention Lifeline [facility] Helpline: The [facility] Helpline is available to anyone in [place] who is need of emotional support. Anyone can call or text the helpline to receive help from specially trained volunteers. [place] high school and college students can also get online support through the IMHear_ program. For high school students, volunteers ages 15-18 are available Tuesday- from 6-9PM. For college students, IMHear_ is available Tuesday-Tuesday from 5-9PM. The Rico Project - The [facility] Project is a 24/ crisis intervention and suicide prevention hotline for LGBTQ youth. Youth can also text Rico to for support, or use the online chat feature on the [employer] Project's website. TrevorText is available Tuesday-Tuesday between 3-10PM. TrevorChat is available seven days a week between 3-10PM. SafeLink: SafeLink is for anyone who is being affected by domestic violence or dating violence. Volunteers at [employer] speak Albanian and Belgian, and [employer] also has a service that can provide translation in more than 130 languages. TTY: Coding Level of Care Code Est Pt Level 5 (12067) Complex EM visit Add On G2211 Diagnoses Anxiety F41.9 Additional Codes YOVANI-7 Assessment Billing - YOVANI-7 Assessment Tool: YOVANI-7 Assessment 10966 ([id number])
== END 2024-03-27 14:51 | disposition home or self-care (01) ==
PROVIDERS: PCP Nurse Practitioner Family; Visit Provider Nurse Practitioner Family
DX: F41.9 Anxiety disorder, unspecified (principal)
CPT/HCPCS: 96127; 99215

== ENCOUNTER 2024-03-27 14:21 | Outpatient (REF) | payer BC, SELFPAY ==
[2024-03-27 18:16] LABS: Amphetamine Screen Urine Not Detected (Not Detect); Barbiturates, Urine Not Detected (Not Detect); Benzodiazepines Screen Urine Not Detected (Not Detect); Buprenorphine Scr Not Detected (Not Detect); Cannabinoid Screen Urine POSITIVE (Not Detect); Cocaine Screen Urine Not Detected (Not Detect); Fentanyl, urine Not Detected (Not Detect); Methadone Screen, Urine Not Detected (Not Detect); Opiate Screen Urine Not Detected (Not Detect); Oxycodone Screen Urine Not Detected (Not Detect); Phencyclidine Screen Urine Not Detected (Not Detect)
[2024-03-27 18:23] LABS: Estimated Average Glucose 97 mg/dL
[2024-03-27 18:28] LABS: Hematocrit 41.5 % (42.0-52.0); Hemoglobin 14.5 g/dl (14.0-18.0); Mean Corpuscular HGB Conc 34.9 g/dl (31.0-36.0); Mean Corpuscular Hemoglobin 30.4 pg (27.0-33.0); Mean Platelet Volume 9.9 fL (9.4-12.4); Platelet Count 320 X10*3/uL (160-400); Red Blood Count 4.77 X10*6/uL (4.60-5.80); Red Cell Distribution Width 11.9 % (11.0-16.0); White Blood Count 4.9 X10*3/uL (4.8-10.8)
[2024-03-27 18:32] LABS: Alanine Aminotransferase 17 U/L (0-40); Albumin Level 4.9 g/dL (3.5-5.0); Alkaline Phosphatase 65 U/L (39-117); Anion Gap 13 (12-20); Aspartate Amino Transferase 21 U/L (5-37); Bilirubin Total 1.2 mg/dL (0.0-1.0); Blood Urea Nitrogen 7 mg/dL (9-16); Carbon Dioxide 23 mmol/L (22-29); Chloride 108 mmol/L (96-108); Cholesterol 127 mg/dL (<200); Estimated Glomerular Filt Rate > 60; Glucose Random 105 mg/dL (60-115); HDL Cholesterol 46 mg/dL (>40); LDL Cholesterol Calculated 74 mg/dL (<100); Magnesium 2.1 mg/dL (1.6-2.6); Phosphorus 2.9 mg/dL (2.7-4.5); Potassium 3.7 mmol/L (3.3-5.1); Sodium 140 mmol/L (135-145); Total Protein 7.6 g/dL (6.5-8.0); Triglycerides 39 mg/dL (<150)
[2024-03-27 18:49] LABS: TSH reflex Free T4 0.65 uIU/mL (0.32-4.0)
[2024-03-27 19:02] LABS: Folate 8.7 ng/mL (> or = 4.0); Vitamin B12 603 pg/mL (200-900)
== END 2024-03-27 14:22 | disposition home or self-care (01) ==
LOC: HO.WFDLDS 14:21
PROVIDERS: Visit Provider Nurse Practitioner Family
DX: Z13.6 Encounter for screening for cardiovascular disorders (principal); F41.9 Anxiety disorder, unspecified; Z02.83 Encounter for blood-alcohol and blood-drug test
CPT/HCPCS: 80053; 80061; 80307; 82607; 82746; 83036; 83735; 84100; 84443; 85027

== ENCOUNTER 2024-04-04 12:15 | Outpatient (AMB) | payer BC, SELFPAY ==
--- NOTE | 2024-04-04 12:17 | A.OFFPC_ITS ---
Vital Signs 04/04/24 12:21 Weight 184 lb 6 oz BP 122/72 Blood Pressure Location Lt brachial Position Sitting Respiration 16 Pulse 66 Pulse Source Pulse Oximeter Temp 97.8 F Temp Source Temporal Artery Scan Pulse Oximetry (%) 97 Oxygen Delivery Method Room Air Intake Visit Reasons: YOVANI F/U Intake Note: patient here for follow up for anxiety and depression. 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- budesonide-formoterol 80-4.5 mcg/actuation (Symbicort) 2 puffs inhalation BID buspirone 10 mg PO TID duloxetine 60 mg PO DAILY ipratropium-albuterol 20-100 mcg/actuation (Combivent Respimat) 1 puff in halation QID montelukast (Singulair) 10 mg PO BEDTIME Tobacco use date assessed: 01/04/24 Dental Screening Dental Screen Date: 01/04/24 HPI HPI Comments History of Present Illness Details Here today to fu on YOVANI Has been taking Buspar TID as directed, in the AM w/food, then again around 230pm and then again at bedtime since last visit Has noticed since taking that he has had a drastic improvement in his YOVANI sx this one works the best w/o side effects Sleeping well at night now w/o having to take any medications. Avoiding caffeine as this is a stimulant which he attributes to worsening anxiety. cont to take duloxetine as directed, at HS Exam Awake alert NAD RRR LS CTAB Mood and affect WNL, much calmer today Plan cont buspar 10mg po TID - refill sent today cont duloxetine at bedtime cont care w/ counselor RTO in 6-8 weeks to fu on YOVANI, sooner PRN PFSH Medical History (Updated 04/04/24 @ 12:44 by Ani Kraus [facility]) Depression Personality disorder Asthma Anxiety Surgical History (Updated 03/27/24 @ 13:53 [facility] No pertinent past surgical history Social History Housing: House Patient Tobacco Use Status: Never used Tobacco e-Cigarette/Vaping Use: Never Used Second Hand Smoke Exposure: No service: No Current occupational status: employed Current occupation: [employer] [place] Current occupational exposures/hazards: No Cognitive needs: No Hearing needs: No Vision needs: No Questionnaire PHQ-9 Over the last 2 weeks, how often have you been bothered by any of the following problems? 1. Little interest or pleasure in doing things: not at all 2. Feeling down, depressed, or hopeless: not at all 3. Trouble falling or staying asleep, or sleeping too much: not at all 4. Feeling tired or having little energy: not at all 5. Poor appetite or overeating: several days 6. Feeling bad about yourself - or that you are a failure or have let yourself or your family down: several days 7. Trouble concentrating on things, such as reading the newspaper or watching television: not at all 8. Moving or speaking so slowly that other people could have noticed. Or the opposite - being so fidgety or restless that you have been moving around a lot more than usual: not at all 9. Thoughts that you would be better off or of hurting yourself in some way: not at all Total score: 2 27255 - PHQ-9 Billing: Yes Source: Developed by Drs. Jj Moulton, Nicolasa Mcgovern, Davey Haines and colleagues, with an educational sis from [employer]. Thrive Questionnaire Date Thrive assessed: 01/04/24 AUDIT C Alcohol Use Questionnaire (AUDIT-C) 1. How often do you have a drink containing alcohol?: Never 3. How often do you have six or more drinks on one occasion?: Never Total Score: 0 YOVANI-7 AMB Questionnaire YOVANI-7 Date YOVANI - 7 assessed: 04/04/24 Feeling nervous, anxious, or on edge: 0 = Not at all Not being able to stop or control worryin = Not at all Worrying too much about different things: 0 = Not at all Trouble relaxin = Not at all Being so restless that it is hard to sit still: 0 = Not at all Becoming easily annoyed or irritable: 0 = Not at all Feeling afraid as if something awful might happen: 0 = Not at all Total YOVANI-7 score (0-4 normal; 5-9 mild; 10-14 moderate; 15-21 severe): 0 Source: Developed by Drs. Jj Moulton, Nicolasa Mcgovern, Davey Haines and colleagues, with an educational sis from [employer]. YOVANI-7 Assessment Billing YOVANI-7 Assessment Tool: YOVANI-7 Assessment 90813 Physical exam (Primary Care) Vital Signs: Last Vital Signs Temp 97.8 F 04/04/24 12:21 Pulse 66 04/04/24 12:21 Resp 16 04/04/24 12:21 BP 122/72 04/04/24 12:21 Pulse Ox 97 04/04/24 12:21 Oxygen Delivery Method Room Air 04/04/24 12:21 Tobacco/Smoking Status: Tobacco use Status Tobacco use date assessed 01/04/24 04/04/24 12:19 Patient Tobacco Use Status Never used Tobacco 04/04/24 12:19 e-Cigarette/Vaping Use Never Used 04/04/24 12:19 PHQ-9: PHQ-9 Score PHQ-9: Total score 2 04/04/24 12:27 Thrive Assessment: Date of Thrive Assessment Date Thrive assessed 01/04/24 04/04/24 12:19 Assessment and Plan Assessment & Plan (1) Anxiety: Code(s): F41.9 - Anxiety disorder, unspecified Plan This note is constructed using voice recognition software. While every effort has been made to ensure accuracy in weaving teacher, still errors may have been included Sometimes, these errors may affect the content or meaning of the given sentence . Total time spent caring for the patient today was 31 minutes. This includes time spent before the visit reviewing the chart, time spent during the visit, and time spent after the visit on documentation Medications: Changed From buspirone 10 mg PO TID 30 tabs 0RF To buspirone 10 mg PO TID 30 days 90 tabs 3RF Refilled duloxetine 60 mg PO DAILY 30 caps 3RF Coding Level of Care Code Est Pt Level 4 (62243) Complex EM visit Add On G2211 Diagnoses Anxiety F41.9 Additional Codes YOVANI-7 Assessment Billing - YOVANI-7 Assessment Tool: YOVANI-7 Assessment 05101 ([id number])
[2024-04-04 12:21] VITALS: BP 122/72; PULSE 66; RESP 16; TEMP 36.6; O2SAT 97
== END 2024-04-04 12:42 | disposition home or self-care (01) ==
PROVIDERS: PCP Nurse Practitioner Family; Visit Provider Nurse Practitioner Family
DX: F41.9 Anxiety disorder, unspecified (principal)
CPT/HCPCS: 99214

== ENCOUNTER 2024-06-15 13:08 | Outpatient (AMB) | payer BC, SELFPAY ==
--- NOTE | 2024-06-15 13:11 | MHC.PC.OV ---
Vital Signs 06/15/24 13:15 Weight 187 lb 4 oz BP 120/62 Blood Pressure Location Lt brachial Position Sitting Respiration 16 Pulse 58 Pulse Source Pulse Oximeter Temp 98.0 F Temp Source Oral Pulse Oximetry (%) 98 Oxygen Delivery Method Room Air Intake Visit Reasons: 6-8 weeks fu YOVANI/Buspar 30 min Intake Note: patient here for follow up. 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 Allergies No Known Allergies [No Known Allergies*] Allergy (Verified 06/15/24 13:35) Medication List - Last Reconciled 06/15/24 by Ani Kraus, [facility] budesonide-formoterol 80-4.5 mcg/actuation (Symbicort) 2 puffs inhalation BID buspirone 10 mg PO TID 30 days montelukast (Singulair) 10 mg PO BEDTIME Tobacco use date assessed: 06/15/24 Dental Screening Dental Screen Date: 01/04/24 HPI HPI Comments History of Present Illness Details 23-year-old with generalized anxiety disorder, MDD, asthma Here today to fu on YOVANI and MDD He is only taking buspar BID at this time, was taking TID. First dose in the AM around 0600, before work, then before he goes to bed around 2130. He is happy w/ the BID dosing, cont to feel like his sx are well controlled. He is working on coping skills. He has found running and going to the gym to be helpful. He is also meditating. Reports eating is better since his anxiety is better controlled; was too worried to eat before. He self discontinued the duloxetine. Tells me for the first time today he has not taken this in 8 months. Tells me he did not have any benefit...only took for about 5 months. Cont w/ counselor Denies SI/HI Exam Awake alert NAD RRR LS CTAB Mood and affect WNL, much calmer today Plan cont buspar 10mg po TID - refill sent today cont care w/ counselor RTO Jul/Aug for CPE, sooner PRN This note is constructed using voice recognition software. While every effort has been made to ensure accuracy in call center analyst, still errors may have been included Sometimes, these errors may affect the content or meaning of the given sentence . Total time spent caring for the patient today was 30 minutes. This includes time spent before the visit reviewing the chart, time spent during the visit, and time spent after the visit on documentation [facility] Medical History (Updated 06/15/24 @ 13:40 by Ani Kraus, [facility]) Depression Personality disorder Asthma Anxiety Surgical History (Updated 03/27/24 @ 13:53 by Philly Luciano [facility]) No pertinent past surgical history Social History Housing: House Patient Tobacco Use Status: Never used Tobacco e-Cigarette/Vaping Use: Never Used Second Hand Smoke Exposure: No service: No Current occupational status: employed Current occupation: [employer] [place] Current occupational exposures/hazards: No Cognitive needs: No Hearing needs: No Vision needs: No Questionnaire PHQ-9 Over the last 2 weeks, how often have you been bothered by any of the following problems? 1. Little interest or pleasure in doing things: not at all 2. Feeling down, depressed, or hopeless: several days 3. Trouble falling or staying asleep, or sleeping too much: not at all 4. Feeling tired or having little energy: not at all 5. Poor appetite or overeating: more than half the days 6. Feeling bad about yourself - or that you are a failure or have let yourself or your family down: not at all 7. Trouble concentrating on things, such as reading the newspaper or watching television: not at all 8. Moving or speaking so slowly that other people could have noticed. Or the opposite - being so fidgety or restless that you have been moving around a lot more than usual: not at all 9. Thoughts that you would be better off or of hurting yourself in some way: not at all Total score: 3 31425 - PHQ-9 Billing: Yes Source: Developed by Drs. jJ Moulton, Nicolasa Mcgovern, Davey Haines and colleagues, with an educational sis from [employer]. Thrive Questionnaire Date Thrive assessed: 01/04/24 YOVANI-7 AMB Questionnaire YOVANI-7 Date YOVANI - 7 assessed: 06/15/24 Feeling nervous, anxious, or on edge: 2 = More than half the days Not being able to stop or control worryin = Not at all Worrying too much about different things: 0 = Not at all Trouble relaxin = Not at all Being so restless that it is hard to sit still: 0 = Not at all Becoming easily annoyed or irritable: 0 = Not at all Feeling afraid as if something awful might happen: 0 = Not at all Total YOVANI-7 score (0-4 normal; 5-9 mild; 10-14 moderate; 15-21 severe): 2 Source: Developed by Drs. Jj Moulton, Nicolasa Mcgovern, Davey Haines and colleagues, with an educational sis from [employer]. YOVANI-7 Assessment Billing YOVANI-7 Assessment Tool: YOVANI-7 Assessment 32044 Physical exam (Primary Care) Vital Signs: Last Vital Signs Temp 98.0 F 06/15/24 13:15 Pulse 58 06/15/24 13:15 Resp 16 06/15/24 13:15 BP 120/62 06/15/24 13:15 Pulse Ox 98 06/15/24 13:15 Oxygen Delivery Method Room Air 06/15/24 13:15 Tobacco/Smoking Status: Tobacco use Status Tobacco use date assessed 06/15/24 06/15/24 13:18 Patient Tobacco Use Status Never used Tobacco 06/15/24 13:13 e-Cigarette/Vaping Use Never Used 06/15/24 13:13 PHQ-9: PHQ-9 Score PHQ-9: Total score 3 06/15/24 13:20 Thrive Assessment: Date of Thrive Assessment Date Thrive assessed 01/04/24 06/15/24 13:13 Assessment and Plan Assessment & Plan (1) MDD (major depressive disorder), recurrent episode: Code(s): F33.9 - Major depressive disorder, recurrent, unspecified Qualifiers: Major depression episode severity: moderate Qualified Code(s): F33.1 - Major depressive disorder, recurrent, moderate (2) Anxiety: Code(s): F41.9 - Anxiety disorder, unspecified Medications: Changed From buspirone 10 mg PO TID 30 days 90 tabs 3RF To buspirone 10 mg PO BID 30 days 60 tabs 3RF Coding Level of Care Code Est Pt Level 4 (10221) Diagnoses Moderate episode of recurrent major depressive disorder F33.1 Major depression episode severity: moderate Anxiety F41.9 Additional Codes YOVANI-7 Assessment Billing - YOVANI-7 Assessment Tool: YOVANI-7 Assessment 89539 ([id number])
[2024-06-15 13:15] VITALS: BP 120/62; PULSE 58; RESP 16; TEMP 36.7; O2SAT 98
== END 2024-06-15 13:47 | disposition home or self-care (01) ==
PROVIDERS: PCP Nurse Practitioner Family; Visit Provider Nurse Practitioner Family
DX: F33.1 Major depressive disorder, recurrent, moderate (principal); F41.9 Anxiety disorder, unspecified

== ENCOUNTER → 2024-06-15 13:08 | Outpatient (BNVA) | payer BC, SELFPAY | PROVIDERS: PCP Nurse Practitioner Family; Visit Provider Nurse Practitioner Family | DX: F33.1 Major depressive disorder, recurrent, moderate (principal); F41.9 Anxiety disorder, unspecified; Z79.899 Other long term (current) drug therapy | CPT/HCPCS: 96127 ==

== ENCOUNTER 2024-06-19 13:36 | Outpatient (AMB) | payer BC, SELFPAY ==
--- NOTE | 2024-06-19 13:40 | A.OFFPC_ITS ---
Vital Signs 06/19/24 13:43 Height 6 ft 1 in Weight 181 lb 6 oz BMI 23.9 BP 148/74 H Blood Pressure Location Lt brachial Position Sitting Respiration 15 Pulse 66 Pulse Source Pulse Oximeter Pulse Oximetry (%) 99 Oxygen Delivery Method Room Air Intake Visit Reasons: NumbnessOnHandsBodySweats Intake Note: Patient complaining of clammy hands, sweaty, cold hands and pale hands x 1 week but worse at night time. Patient also complaining of the same symptoms on both feets. Patient states is interfering with work now. Allergies No Known Allergies [No Known Allergies*] Allergy (Verified 06/19/24 13:42) Medication List - Last Reconciled 06/19/24 by Ani Kraus, [facility]- budesonide-formoterol 80-4.5 mcg/actuation (Symbicort) 2 puffs inhalation BID buspirone 10 mg PO BID 30 days montelukast (Singulair) 10 mg PO BEDTIME Tobacco use date assessed: 06/15/24 Dental Screening Dental Screen Date: 01/04/24 HPI HPI Comments History of Present Illness Details 23 y/o M with YOVANI here today with cc: doing horribly right now from last visit to now all of a sudden started having sweaty hands kept getting worse washed hands but this did not help hands feel like i cant feel them like im losing feeling in my fingers feels like i stuck my hands in snow and left it there for 3 hours has not returned to normal increased his running wondering if this would help he now started w/ the same sensation in his feet Discussed his recent increase in running could be causing this. He firmly states its not his running. He has been on the buspirone, no dose changes, but he really thinks his sx are a result of this medication. Sweating is a side effect of buspirone, however he has been w/o this until now. Has a family hx of DM1, his brother has this. I recommend checking his glucose now as he is sweating. He then told me, he was eating 1 meal per day before, but now he is not eating. Has a mental aversion to eating. This is all new info to me. He has had notable wt loss since the last visit of 6 lbs. When asked what he has had to eat today: 2 yogurts and a bagel, diet cranberry ju ice and h20. Admits to eating low bibi, diet foods. Was overweight and does not want to be there again. Is burning more cals than he is eating, on purpose. Cont w a counselor , he did tell the counselor about this. When i mentioned eating disorder, restrictive disorder, negative body image her agreed with all of the above. Exam awake alert NAD diaphoretic Anxious yet cooperative Plan: Brief intervention w/ NN today to est resources Labs today Cont all meds, no change FU in 1 week At 1455 when he went to get labs drawn, tech concerned for the amt of sweating. Random glucose done 97mg/dl. This note is constructed using voice recognition software. While every effort has been made to ensure accuracy in periodicals library assistant, still errors may have been included Sometimes, these errors may affect the content or meaning of the given sentence . Total time spent caring for the patient today was 45 minutes. This includes time spent before the visit reviewing the chart, time spent during the visit, and time spent after the visit on documentation [facility] Medical History (Updated 06/19/24 @ 14:13 by Ani Kraus, [facility]) Depression Personality disorder Asthma Anxiety Surgical History (Updated 03/27/24 @ 13:53 by Philly Luciano [facility]) No pertinent past surgical history Social History Housing: House Patient Tobacco Use Status: Never used Tobacco e-Cigarette/Vaping Use: Never Used Second Hand Smoke Exposure: No service: No Current occupational status: employed Current occupation: [employer] [place] Current occupational exposures/hazards: No Cognitive needs: No Hearing needs: No Vision needs: No Questionnaire Thrive Questionnaire Date Thrive assessed: 01/04/24 YOVANI-7 AMB Questionnaire YOVANI-7 Date YOVANI - 7 assessed: 06/15/24 Source: Developed by Drs. Jj Moulton, Nicolasa Mcgovern, Davey Haines and colleagues, with an educational sis from [employer]. Physical exam (Primary Care) Vital Signs: Last Vital Signs Pulse 66 06/19/24 13:43 Resp 15 06/19/24 13:43 BP 148/74 H 06/19/24 13:43 Pulse Ox 99 06/19/24 13:43 Oxygen Delivery Method Room Air 06/19/24 13:43 BMI result Body Mass Index 23.9 Tobacco/Smoking Status: Tobacco use Status Tobacco use date assessed 06/15/24 06/19/24 13:43 Patient Tobacco Use Status Never used Tobacco 06/19/24 13:43 e-Cigarette/Vaping Use Never Used 06/19/24 13:43 Thrive Assessment: Date of Thrive Assessment Date Thrive assessed 01/04/24 06/19/24 13:43 Results AMB Random Glucose (hemocue) AMB Random Glucose (hemocue) 97 mg/dL Last Edit by SHARDA Zavala on 06/19/24 15:00 Assessment and Plan Assessment & Plan (1) Eating disorder: Code(s): F50.9 - Eating disorder, unspecified (2) Generalized hyperhidrosis: Code(s): R61 - Generalized hyperhidrosis Orders: Orders Complete Blood Count no Diff Today F50.9 - Eating disorder, unspecified, R61 - Generalized hyperhidrosis TSH reflex Free T4 Today F50.9 - Eating disorder, unspecified, R61 - Generalized hyperhidrosis Vitamin B12 and Folate Today F50.9 - Eating disorder, unspecified, R61 - Generalized hyperhidrosis Magnesium Today F50.9 - Eating disorder, unspecified, R61 - Generalized hyperhidrosis Comprehensive Met. Panel Today F50.9 - Eating disorder, unspecified, R61 - Generalized hyperhidrosis Hemoglobin A1c Today F50.9 - Eating disorder, unspecified, R61 - Generalized hyperhidrosis IRON PROFILE Today F50.9 - Eating disorder, unspecified, R61 - Generalized hyperhidrosis Microalbumin, Random (w Creat) Today F50.9 - Eating disorder, unspecified, R61 - Generalized hyperhidrosis Zinc Today F50.9 - Eating disorder, unspecified, R61 - Generalized hyperhidrosis Phosphorus Today F50.9 - Eating disorder, unspecified, R61 - Generalized hyperhidrosis AMB Random Glucose (hemocue) Today R61 - Generalized hyperhidrosis Patient Instructions: Crisis Hotlines Suicide prevention, domestic violence, and other crisis hotlines for youth, young adults, and their friends and families. [employer] Safeline: The National Runaway Safeline helps youth who have run away, are thinking about running away, or who already ran away but are ready to come home. Parents and guardians can also contact the hotline if they are worried about their child running away or if their child has already left home. The hotline is available 24 hours a day, seven days a week. Youth, parents, and guardians can also use the online chat feature on the [facility]'s website to ask for help and get support, or [place] [address]. [facility] National Suicide Prevention Lifeline: The National Suicide Prevention Lifeline is a network of local crisis centers that are available 18/04 to provide support for youth and adults who are in any kind of emotional crisis. In addition to the main hotline number listed above, there are several other numbers to call depending on your needs: Syriac Language: Deaf and Hard of Hearin1-673.220.2320 Veterans: Disaster Distress: Anyone can also use their online chat feature on their website. [place] Suicide Prevention Lifeline [facility] Helpline: The [facility] Helpline is available to anyone in [place] who is need of emotional support. Anyone can call or text the helpline to receive help from specially trained volunteers. [place] high school and college students can also get online support through the IMHear_ program. For high school students, volunteers ages 15-18 are available Tuesday- from 6-9PM. For college students, IMHear_ is available Tuesday-Tuesday from 5-9PM. The Rico Project - The Rico Project is a 18/04 crisis intervention and suicide prevention hotline for LGBTQ youth. Youth can also text Rico to for support, or use the online chat feature on the Rico Project's website. [employer] is available Tuesday-Tuesday between 3-10PM. [employer]Chat is available seven days a week between 3-10PM. SafeLink: SafeLink is for anyone who is being affected by domestic violence or dating violence. Volunteers at [employer] speak [place] and Syriac, and [employer] also has a service that can provide translation in more than 130 languages. TTY: Coding Level of Care Code Est Pt Level 5 (50717) Complex EM visit Add On G2211 Diagnoses Eating disorder F50.9 Generalized hyperhidrosis R61
[2024-06-19 13:43] VITALS: BP 148/74; PULSE 66; RESP 15; O2SAT 99; BMI 23.9
== END 2024-06-19 14:30 | disposition home or self-care (01) ==
PROVIDERS: PCP Nurse Practitioner Family; Visit Provider Nurse Practitioner Family
DX: F50.9 Eating disorder, unspecified (principal); R61 Generalized hyperhidrosis

== ENCOUNTER → 2024-06-19 13:36 | Outpatient (BNVA) | payer BC, SELFPAY | PROVIDERS: PCP Nurse Practitioner Family; Visit Provider Nurse Practitioner Family | DX: F50.9 Eating disorder, unspecified (principal); R61 Generalized hyperhidrosis | CPT/HCPCS: 82948 ==

== ENCOUNTER 2024-06-19 14:44 | Outpatient (REF) | payer BC, SELFPAY ==
[2024-06-19 18:47] LABS: Creatinine Urine 147.69 mg/dL; Microalbum/Creatinine Ratio Ur 5.4 ug/mg cr (<30)
[2024-06-19 18:56] LABS: Hemoglobin 15.9 g/dl (14.0-18.0); Mean Corpuscular HGB Conc 34.6 g/dl (31.0-36.0); Mean Corpuscular Hemoglobin 30.5 pg (27.0-33.0); Mean Corpuscular Volume 88.3 fL (80.0-98.0); Mean Platelet Volume 9.9 fL (9.4-12.4); Platelet Count 329 X10*3/uL (160-400); Red Blood Count 5.21 X10*6/uL (4.60-5.80); Red Cell Distribution Width 12.3 % (11.0-16.0)
[2024-06-19 18:57] LABS: Alanine Aminotransferase 20 U/L (0-40); Albumin Level 5.6 g/dL (3.5-5.0); Alkaline Phosphatase 64 U/L (39-117); Anion Gap 15 (12-20); Aspartate Amino Transferase 24 U/L (5-37); Bilirubin Total 1.8 mg/dL (0.0-1.0); Blood Urea Nitrogen 14 mg/dL (9-16); Carbon Dioxide 24 mmol/L (22-29); Chloride 106 mmol/L (96-108); Estimated Glomerular Filt Rate > 60; Glucose Random 92 mg/dL (60-115); Iron 115 mcg/dL (45-160); Magnesium 2.1 mg/dL (1.6-2.6); Percent Iron Saturation 33 % (15-50); Phosphorus 3.1 mg/dL (2.7-4.5); Potassium 3.6 mmol/L (3.3-5.1); Sodium 141 mmol/L (135-145); Total Iron Binding Capacity 348 mcg/dL (228-428); Total Protein 8.8 g/dL (6.5-8.0); Unsaturated Iron Binding 233 ug/dL
[2024-06-19 19:15] LABS: TSH reflex Free T4 1.06 uIU/mL (0.32-4.0)
[2024-06-19 19:21] LABS: Folate 10.1 ng/mL (> or = 4.0); Vitamin B12 751 pg/mL (200-900)
[2024-06-20 08:13] LABS: Estimated Average Glucose 97 mg/dL; Hemoglobin A1C 119.3579 umol/L
== END 2024-06-19 14:45 | disposition home or self-care (01) ==
LOC: HO.WFDLDS 14:44
PROVIDERS: Visit Provider Nurse Practitioner Family
DX: R61 Generalized hyperhidrosis (principal); F50.9 Eating disorder, unspecified; Z13.1 Encounter for screening for diabetes mellitus
CPT/HCPCS: 36415; 80053; 82043; 82570; 82607; 82746; 83036; 83540; 83735; 84100; 84443; 85027

== ENCOUNTER 2024-06-20 11:40 | Outpatient (REF) | payer BC, SELFPAY ==
[2024-06-20 13:27] LABS: Parathyroid Hormone Intact 39.3 pg/mL (8.7-77.1)
[2024-06-20 16:34] LABS: Vitamin D 25-OH Total 20.7 ng/mL (>30)
[2024-06-22 13:33] LABS: Calcium, Ionized 5.3 mg/dL (4.7-5.5)
[2024-06-23 17:19] LABS: Zinc 77 mcg/dL (60-130)
== END 2024-06-20 11:41 | disposition home or self-care (01) ==
LOC: HO.WFDLDS 11:40
PROVIDERS: Visit Provider Nurse Practitioner Family
DX: E83.52 Hypercalcemia (principal); F50.9 Eating disorder, unspecified; R61 Generalized hyperhidrosis
CPT/HCPCS: 36415; 82306; 82330; 83970; 84630

== ENCOUNTER → 2024-06-20 17:44 | Outpatient (BNV) | payer BC, SELFPAY ==
--- NOTE | 2024-06-20 17:44 | A.OFFPC_ITS ---
Intake Visit Reasons: Amb Documentation Allergies No Known Allergies [No Known Allergies*] Allergy (Verified 06/20/24 17:50) Medication List - Last Reconciled 06/20/24 by Ani Kraus [facility] budesonide-formoterol 80-4.5 mcg/actuation (Symbicort) 2 puffs inhalation BID buspirone 10 mg PO BID 30 days montelukast (Singulair) 10 mg PO BEDTIME Tobacco use date assessed: 06/15/24 Dental Screening Dental Screen Date: 01/04/24 HPI HPI Comments History of Present Illness Details Telehealth visit for this 23 y/o M with YOVANI, Restrictive eating and hyperhydrosis. feels better than yesterday he was sweating really bad his hands were cold cont to take his buspirone; however increased this back to TID was drinking h20 drank 2 Gatorades and then his hands felt better since this time, his hands have not been sweaty, cold or 'not able to feel' He cont to have mild sweating; worse when he has socks or a blank on; but better yesterday he ate a sandwich today he had oatmeal and a roll contour grinder. Reviewed the labs w/ him in detail. Asked if he could take a supplement for this. 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) Depression Personality disorder Asthma Anxiety Surgical History (Updated 03/27/24 @ 13:53 by Philly Luciano [facility]) No pertinent past surgical history Social History Housing: House Patient Tobacco Use Status: Never used Tobacco e-Cigarette/Vaping Use: Never Used Second Hand Smoke Exposure: No service: No Current occupational status: employed Current occupation: [employer] [place] Current occupational exposures/hazards: No Cognitive needs: No Hearing needs: No Vision needs: No Questionnaire Thrive Questionnaire Date Thrive assessed: 01/04/24 YOVANI-7 AMB Questionnaire YOVANI-7 Date YOVANI - 7 assessed: 06/15/24 Source: Developed by DrsAngel Moulton, Nicolasa Mcgovern, Davey Haines and colleagues, with an educational sis from [employer]. Physical exam (Primary Care) Tobacco/Smoking Status: Tobacco use Status Tobacco use date assessed 06/15/24 06/19/24 13:43 Patient Tobacco Use Status Never used Tobacco 06/19/24 13:43 e-Cigarette/Vaping Use Never Used 06/19/24 13:43 Thrive Assessment: Date of Thrive Assessment Date Thrive assessed 01/04/24 06/19/24 14:40 Telehealth Telehealth Telehealth Platform: Telephone Location of provider rendering services: practice address Location of patient: address on file Patient Identification confirmed using: Name, : Yes Telehealth method: voice only Patient verbally consented to treatment: Yes Patient verbally consented to billing insurance company: Yes Patient informed of any privacy concerns related to visit: Yes Minutes spent on Phone/Video with Pt.: 22 Results Reviewed Results Reviewed: RUN: 06/20/24 1746 PAGE 1 [facility] [address] [place] [id number] Laboratory Phlebotomist: Marc Millan M.D. Specimen Inquiry Name: Jarvis Warner Age/Sex: 23/M : 2000 Unit#: [id number] Attend Dr: Ani Kraus Re06/19/24 Status: DEP REF Location: [facility] Disch: SPEC : [id number] MERCED: 06/19/24 STATUS: COMP REQ : [id number] RECD: 06/19/[address]: Ani Kraus COMP: 06/19/24 ENTERED: 06/19/[address] [facility] [address]: ORDERED: CBC No Diff Test Result Flag Reference WBC 7.0 4.8-10.8 X10*3/uL RBC 5.21 4.60-5.80 X10*6/uL HGB 15.9 14.0-18.0 g/dl HCT 46.0 42.0-52.0 % MCV 88.3 80.0-98.0 fL MCH 30.5 27.0-33.0 pg MCHC 34.6 31.0-36.0 g/dl RDW 12.3 11.0-16.0 % PLT 329 160-400 X10*3/uL MPV 9.9 9.4-12.4 fL NRBC Pct Auto 0.0 0.0-0.2 /100WBC NRBC Abs Auto 0.000 0.0-0.012 X10*3/uL END OF REPORT RUN: 06/20/24 0351 PAGE 1 [facility] [address] [place] [id number] Laboratory Phlebotomist: Marc Millan M.D. Specimen Inquiry Name: Jarvis Warner Age/Sex: 23/M : 2000 Unit#: [id number] Attend Dr: Ani Kraus Re06/19/24 Status: DEP [facility] Disch: SPEC : [id number] MERCED: 06/19/24 STATUS: COMP REQ : [id number] RECD: 06/19/[address]: Ani Kraus COMP: 06/19/24 ENTERED: 06/19/[address] [facility] [address]: ORDERED: CMP, Phos, MG, IRON PROF, TSH Rflx Test Result Flag Reference Sodium 141 135-145 mmol/L Potassium 3.6 3.3-5.1 mmol/L CL 106 96-108 mmol/L CO2 24 22-29 mmol/L Gap 15 12-20 BUN 14 9-16 mg/dL Creat 0.77 0.5-1.4 mg/dL EGFR > 60 NOTE: For -Surinamese individuals, multiply the result by 1.210. Chronic Kidney Disease: Estimated GFR < 60 mL/min/1.73m2 Severe Kidney Disease: Estimated GFR < 15 mL/min/1.73m2 Glucose, Random 92 60-115 mg/dL CA 11.0 # H 8.4-10.2 mg/dL Phosphorus 3.1 2.7-4.5 mg/dL Magnesium 2.1 1.6-2.6 mg/dL Iron 115 45-160 mcg/dL TIBC 348 228-428 mcg/dL Saturation 33 15-50 % UIBC 233 ug/dL Total Bili 1.8 H 0.0-1.0 mg/dL AST (GOT) 24 5-37 U/L ALT (GPT) 20 0-40 U/L Protein, Total 8.8 H 6.5-8.0 g/dL Alb 5.6 H 3.5-5.0 g/dL Alk Phos 64 39-117 U/L TSH 1.06 0.32-4.0 uIU/mL RUN: 06/20/24 1747 PAGE 1 [facility] [address] [place] [id number] Laboratory Phlebotomist: Marc Millan M.D. Specimen Inquiry Name: Jarvis Warner Age/Sex: 23/M : 2000 Unit#: [id number] Attend Dr: Ani Kraus-BC Re06/19/24 Status: DEP [facility]F [facility] Disch: SPEC : [id number] MERCED: 06/19/24 STATUS: COMP REQ : [id number] RECD: 06/19/24-[address]: Ani Kraus GLASS ARTIST-BC COMP: 06/19/24 ENTERED: 06/19/[address]: ORDERED: MICARU Test Result Flag Reference Creat, Ur 147.69 mg/dL Microalbumin Ur 8.0 mg/L Alb/Creat Ratio 5.4 <30 ug/mg cr Albumin/Creatinine Ratio Reference Ranges: Normal: < 30 ug/mg creatinine Microalbuminuria: 30 - 300 ug/mg creatinine Clinical Albuminuria: > 300 ug/mg creatinine Assessment and Plan Assessment & Plan (1) Eating disorder: Code(s): F50.9 - Eating disorder, unspecified (2) Generalized hyperhidrosis: Code(s): R61 - Generalized hyperhidrosis (3) Hypercalcemia: Code(s): E83.52 - Hypercalcemia (4) Vitamin D deficiency: Code(s): E55.9 - Vitamin D deficiency, unspecified Orders: Referrals Medical Nutrition Therapy Referral E55.9 - Vitamin D deficiency, unspecified, E83.52 - Hypercalcemia, F50.9 - Eating disorder, unspecified, R61 - Generalized hyperhidrosis Patient Instructions: [email or web address] Coding Level of Care Code Tele Est Pt Level 3 (88180) Diagnoses Eating disorder F50.9 Generalized hyperhidrosis R61 Hypercalcemia E83.52 Vitamin D deficiency E55.9
== END ==
PROVIDERS: PCP Nurse Practitioner Family; Visit Provider Nurse Practitioner Family
DX: R61 Generalized hyperhidrosis (principal); F50.9 Eating disorder, unspecified; E83.52 Hypercalcemia
CPT/HCPCS: 99443

== ENCOUNTER 2024-07-27 14:10 | Outpatient (AMB) | payer BC, SELFPAY ==
--- NOTE | 2024-07-27 14:13 | MHC.PC.OV ---
Vital Signs 07/27/24 14:16 Height 6 ft 1 in Weight 192 lb 8 oz BMI 25.4 BP 138/72 Blood Pressure Location Rt brachial Position Sitting Respiration 14 Pulse 76 Pulse Source Pulse Oximeter Pulse Oximetry (%) 99 Oxygen Delivery Method Room Air Intake Visit Reasons: Anxiety meds follow up Intake Note: follow up on meds Allergies No Known Allergies [No Known Allergies*] Allergy (Verified 07/27/24 14:17) Medication List - Last Reconciled 07/27/24 by Ani Kraus [facility] budesonide-formoterol 80-4.5 mcg/actuation (Symbicort) 2 puffs inhalation BID montelukast (Singulair) 10 mg PO BEDTIME Tobacco use date assessed: 06/15/24 Dental Screening Dental Screen Date: 01/04/24 HPI HPI Comments History of Present Illness Details 23-year-old with generalized anxiety disorder, MDD, asthma Here today for follow up on his generalized anxiety major depressive disorder and eating disorder. I have seen bim several times over the last few weeks. Unfortunately while he was on vacation in June in [place] his mom contacted me stating that his anxiety symptoms were out of control. He was not able to enjoy himself. She also does tell me that during adolescence and teenage years that he was on several antidepressants and they were actually considering ECT or ESTELLA however this was denied by insurance. Unfortunately this was the 1st time that I am hearing any of this information. Be that as it may patient reports today that while he was in [place] July 07 he started to feel like he was sweating. At that time he was taking buspirone 10 mg PO TID. Reports that he did not drink any alcohol while on vacation. He tried to enjoy himself and ignore his symptoms but he was not able to. He reports that he was miserable. He felt like the buspirone was making his sweating of his hands and feet worse, which previously he reports that taking it 3 times a day improve the symptoms. 2-3 days into the vacation he reduced it from t.i.d. to q.day. however he continue to sweat, so he just stopped taking it. Reports that the sweating continued unchanged in the absence of the buspirone. When he got home from vacation he ordered a liver detox pill and has been taking 1 per day. He thinks that this has helped him. Although he is still sweating, he comes to the office holding multiple rolls of paper towels in his palms, he tells me he does not feel like he was sweating anymore. He also tells me that he had constipation prior to the start of the liver pill which is also new information to me but now the constipation is cured. He remains off the buspirone. He has not seen his counselor in a few weeks due to vacation. I did refer him to an eating disorder stem mounter. He did not make an appointment. I also set him up with the nurse navigator to help him get a eating disorder counselor. However nothing has been done with this at this time. He feels like before he was just taking medications and not doing anything else to help himself. Now that he is off medications he feels like he was in a good mind frame to help himself. Mom is not present at the appointment today. When I asked why he reports that she was not able to make it. I asked to call her during the office visit and he declined. I told him quite frankly that it was very hard for me to treat him without him being fully honest with me. He is also very hard to treat him when he is taking medications as he wishes to take them. He also admits to telling me he is taking medications when he was not. Therefore I am not sure what I am really dealing with. He does need a referral to a psychiatrist who can further manage him. I will not prescribe any new medications today. He does need a repeat on his labs to evaluate his previous abnormal labs. He has gained weight since last office visit. He tells me that he is eating. I will also check a urine tox to be sure that there is nothing else playing a part. His previous urine tox showed marijuana only. Our community navigator was able to make a brief intervention today to meet with him and help him establish care with a psychiatrist. I would like to see him back in a few weeks for close interim follow up. I will let him know about the repeat labs once they are back. He does contract for safety. Crisis information provided at the time of discharge. exam: Awake alert NAD Tremulous Mood anxious. When talking to him about my concerns, he did put his hands behind his head anc close his eyes RTO in a few weeks to f/u, sooner PRN This note is constructed using voice recognition software. While every effort has been made to ensure accuracy in meat products demonstrator, still errors may have been included Sometimes, these errors may affect the content or meaning of the given sentence . Total time spent caring for the patient today was 45 minutes. This includes time spent before the visit reviewing the chart, time spent during the visit, and time spent after the visit on documentation [facility] Medical History (Updated 07/27/24 @ 15:48 by Ani Kraus, [facility]) Depression Personality disorder Asthma Anxiety Surgical History (Updated 03/27/24 @ 13:53 by Philly Luciano [facility]) No pertinent past surgical history Social History Housing: House Patient Tobacco Use Status: Never used Tobacco e-Cigarette/Vaping Use: Never Used Second Hand Smoke Exposure: No service: No Current occupational status: employed Current occupation: [employer] [place] Current occupational exposures/hazards: No Cognitive needs: No Hearing needs: No Vision needs: No Questionnaire PHQ-9 Over the last 2 weeks, how often have you been bothered by any of the following problems? 1. Little interest or pleasure in doing things: several days 2. Feeling down, depressed, or hopeless: several days 3. Trouble falling or staying asleep, or sleeping too much: not at all 4. Feeling tired or having little energy: not at all 5. Poor appetite or overeating: several days 6. Feeling bad about yourself - or that you are a failure or have let yourself or your family down: more than half the days 7. Trouble concentrating on things, such as reading the newspaper or watching television: not at all 8. Moving or speaking so slowly that other people could have noticed. Or the opposite - being so fidgety or restless that you have been moving around a lot more than usual: not at all 9. Thoughts that you would be better off or of hurting yourself in some way: not at all Total score: 5 Depression Screening Interpretation: Positive Depression Screening Follow-up: Existing condition and In treatment Depression Screening Done: Yes 08981 - PHQ-9 Billing: Yes Source: Developed by Nicolasa Power.W. Froilan, Davey Haines and colleagues, with an educational sis from [employer]. Thrive Questionnaire Date Thrive assessed: 07/27/24 I am a: Patient What is your living situation today?: I have a steady place to live Within the past 12 months, did the food you bought not last and you didn't have the money to get more?: Never true Within the past 12 months, did you worry whether your food would run out before you got money to buy more?: Never true Do you have trouble paying for medicines?: No Do you have trouble getting transportation to medical appointments?: No Do you have trouble paying your heating and electricity bill?: No Do you have trouble taking care of your child, family member or friend?: No Do you have trouble with day-to-day activities such as bathing, preparing meals, shopping, managing finances, etc.?: No Are you currently unemployed and looking for a job?: No Are you interested in more education?: No Please select the resources that you would like help with: None Currently or been in a relationship where the following occur: I choose not to answer THRIVE Score: 0 AUDIT C Alcohol Use Questionnaire (AUDIT-C) 1. How often do you have a drink containing alcohol?: Never Total Score: 0 Score Reviewed/Action Taken: Yes YOVANI-7 AMB Questionnaire YOVANI-7 Date YOVANI - 7 assessed: 07/27/24 Feeling nervous, anxious, or on edge: 0 = Not at all Not being able to stop or control worryin = Nearly every day Worrying too much about different things: 3 = Nearly every day Trouble relaxin = More than half the days Being so restless that it is hard to sit still: 2 = More than half the days Becoming easily annoyed or irritable: 3 = Nearly every day Feeling afraid as if something awful might happen: 3 = Nearly every day Total YOVANI-7 score (0-4 normal; 5-9 mild; 10-14 moderate; 15-21 severe): 16 Source: Developed by Drs. Jj Moulton, Nicolasa Mcgovern, Davey Haines and colleagues, with an educational sis from [employer]. YOVANI-7 Assessment Billing YOVANI-7 Assessment Tool: YOVANI-7 Assessment 91218 Physical exam (Primary Care) Vital Signs: Last Vital Signs Pulse 76 07/27/24 14:16 Resp 14 07/27/24 14:16 BP 138/72 07/27/24 14:16 Pulse Ox 99 07/27/24 14:16 Oxygen Delivery Method Room Air 07/27/24 14:16 BMI result Body Mass Index 25.4 Tobacco/Smoking Status: Tobacco use Status Tobacco use date assessed 06/15/24 07/27/24 14:15 Patient Tobacco Use Status Never used Tobacco 07/27/24 14:15 e-Cigarette/Vaping Use Never Used 07/27/24 14:15 PHQ-9: PHQ-9 Score PHQ-9: Total score 5 07/27/24 14:48 Depression Screening Interpretation: Positive Depression Screening Follow-up: Existing condition and In treatment Thrive Assessment: Date of Thrive Assessment Date Thrive assessed 07/27/24 07/27/24 14:15 Currently or been in a relationship where the following occur: I choose not to answer Coding Level of Care Code Est Pt Level 5 (26351) Complex EM visit Add On G2211 Diagnoses Vitamin D deficiency E55.9 Hypercalcemia E83.52 Mild restricting type anorexia nervosa F50.010 Eating disorder type: restricting type anorexia nervosa Eating disorder severity or remission status: mild Generalized hyperhidrosis R61 Moderate episode of recurrent major depressive disorder F33.1 Major depression episode severity: moderate YOVANI (generalized anxiety disorder) F41.1 Additional Codes YOVANI-7 Assessment Billing - YOVANI-7 Assessment Tool: YOVANI-7 Assessment 39507 ([id number]) Assessment & Plan Assessment & Plan (1) Vitamin D deficiency: Code(s): E55.9 - Vitamin D deficiency, unspecified Category: Medical Plan: . (2) Hypercalcemia: Code(s): E83.52 - Hypercalcemia Category: Medical Plan: . (3) Eating disorder: Code(s): F50.9 - Eating disorder, unspecified Category: Medical Qualifiers: Eating disorder type: restricting type anorexia nervosa Eating disorder severity or remission status: mild Qualified Code(s): F50.010 - Anorexia nervosa, restricting type, mild Plan: . (4) Generalized hyperhidrosis: Code(s): R61 - Generalized hyperhidrosis Category: Medical Plan: . (5) MDD (major depressive disorder), recurrent episode: Code(s): F33.9 - Major depressive disorder, recurrent, unspecified Category: Medical Qualifiers: Major depression episode severity: moderate Qualified Code(s): F33.1 - Major depressive disorder, recurrent, moderate Plan: . (6) YOVANI (generalized anxiety disorder): Code(s): F41.1 - Generalized anxiety disorder Category: Medical Plan . Orders: Orders Comprehensive Met. Panel Today E55.9 - Vitamin D deficiency, unspecified, E83.52 - Hypercalcemia, F50.9 - Eating disorder, unspecified Vitamin D 25-OH Total Today E55.9 - Vitamin D deficiency, unspecified, E83.52 - Hypercalcemia, F50.9 - Eating disorder, unspecified Calcium, Ionized Today E55.9 - Vitamin D deficiency, unspecified, E83.52 - Hypercalcemia, F50.9 - Eating disorder, unspecified UA w Microscopic Today E55.9 - Vitamin D deficiency, unspecified, E83.52 - Hypercalcemia, F50.9 - Eating disorder, unspecified Drug Screen Urine Today E55.9 - Vitamin D deficiency, unspecified, E83.52 - Hypercalcemia, F50.9 - Eating disorder, unspecified Referrals Psychiatry Referral E55.9 - Vitamin D deficiency, unspecified, E83.52 - Hypercalcemia, F33.1 - Major depressive disorder, recurrent, moderate, F41.1 - Generalized anxiety disorder, F50.9 - Eating disorder, unspecified Patient Instructions: Crisis Hotlines Suicide prevention, domestic violence, and other crisis hotlines for youth, young adults, and their friends and families. [place] [facility]: The [employer] helps youth who have run away, are thinking about running away, or who already ran away but are ready to come home. Parents and guardians can also contact the hotline if they are worried about their child running away or if their child has already left home. The hotline is available 24 hours a day, seven days a week. Youth, parents, and guardians can also use the online chat feature on the [facility]'s website to ask for help and get support, or [place] [address]. [place] [facility] National Suicide Prevention Lifeline: The National Suicide Prevention Lifeline is a network of local crisis centers that are available 18/04 to provide support for youth and adults who are in any kind of emotional crisis. In addition to the main hotline number listed above, there are several other numbers to call depending on your needs: Thai Language: Deaf and Hard of Hearin1-243.270.8015 Veterans: Disaster Distress: Anyone can also use their online chat feature on their website. National Suicide Prevention Lifeline [facility] Helpline: The [facility] Helpline is available to anyone in [place] who is need of emotional support. Anyone can call or text the helpline to receive help from specially trained volunteers. [place] high school and college students can also get online support through the IMHear_ program. For high school students, volunteers ages 15-18 are available Tuesday- from 6-9PM. For college students, [employer]_ is available Tuesday-Tuesday from 5-9PM. The Rico Project - The Rico Project is a 18/04 crisis intervention and suicide prevention hotline for LGBTQ youth. Youth can also text Rico to for support, or use the online chat feature on the Rico Project's website. [employer] is available Tuesday-Tuesday between 3-10PM. [employer] is available seven days a week between 3-10PM. [employer]: SafeLink is for anyone who is being affected by domestic violence or dating violence. Volunteers at [employer]Link speak Kyrgyz and Thai, and [employer] also has a service that can provide translation in more than 130 languages. TTY:
[2024-07-27 14:16] VITALS: BP 138/72; PULSE 76; RESP 14; O2SAT 99; BMI 25.4
== END 2024-07-27 14:53 | disposition home or self-care (01) ==
LOC: HO.HMCFM 14:11
PROVIDERS: PCP Nurse Practitioner Family; Visit Provider Nurse Practitioner Family
DX: E83.52 Hypercalcemia (principal); F33.1 Major depressive disorder, recurrent, moderate; F50.01 Anorexia nervosa, restricting type; R61 Generalized hyperhidrosis; F41.1 Generalized anxiety disorder

== ENCOUNTER → 2024-07-27 14:10 | Outpatient (BNVA) | payer BC, SELFPAY | PROVIDERS: PCP Nurse Practitioner Family; Visit Provider Nurse Practitioner Family | DX: E55.9 Vitamin D deficiency, unspecified (principal); E83.52 Hypercalcemia; F50.01 Anorexia nervosa, restricting type; Z68.25 Body mass index [BMI] 25.0-25.9, adult; R61 Generalized hyperhidrosis; F33.1 Major depressive disorder, recurrent, moderate; F41.1 Generalized anxiety disorder | CPT/HCPCS: 96127 ==

== ENCOUNTER 2024-07-27 15:16 | Outpatient (REF) | payer BC, SELFPAY ==
[2024-07-27 18:03] LABS: Appearance Urine Clear; Color Urine Yellow; Glucose Urine UA Negative (Negative); Leukocyte Esterase Urine Negative (Negative); Nitrite Urine Negative (Negative); PH 7.5 (5.0-9.0); Urine Blood Negative (Negative); Urine Ketones Negative (Negative); Urine Protein Negative (Neg-Trace)
[2024-07-27 18:05] LABS: Bacteria Urine None Seen (None Seen); Hyaline Casts Urine 0-2 /LPF (0-2); RBC Urine 0-2 /HPF (0-2); Squamous Epithelial Cell Urine 0-2 /HPF (0-2); WBC Urine 0-5 /HPF (0-5)
[2024-07-27 18:22] LABS: Amphetamine Screen Urine Not Detected (Not Detect); Barbiturates, Urine Not Detected (Not Detect); Benzodiazepines Screen Urine Not Detected (Not Detect); Buprenorphine Scr Not Detected (Not Detect); Cannabinoid Screen Urine POSITIVE (Not Detect); Cocaine Screen Urine Not Detected (Not Detect); Fentanyl, urine Not Detected (Not Detect); Methadone Screen, Urine Not Detected (Not Detect); Opiate Screen Urine Not Detected (Not Detect); Oxycodone Screen Urine Not Detected (Not Detect); Phencyclidine Screen Urine Not Detected (Not Detect)
[2024-07-27 18:38] LABS: Alanine Aminotransferase 21 U/L (0-40); Albumin Level 4.9 g/dL (3.5-5.0); Alkaline Phosphatase 69 U/L (39-117); Anion Gap 17 (12-20); Aspartate Amino Transferase 29 U/L (5-37); Bilirubin Total 0.7 mg/dL (0.0-1.0); Blood Urea Nitrogen 10 mg/dL (9-16); Calcium 10.1 mg/dL (8.4-10.2); Carbon Dioxide 24 mmol/L (22-29); Chloride 104 mmol/L (96-108); Estimated Glomerular Filt Rate > 60; Glucose Random 96 mg/dL (60-115); Potassium 4.1 mmol/L (3.3-5.1); Sodium 141 mmol/L (135-145); Total Protein 7.9 g/dL (6.5-8.0)
[2024-07-27 18:42] LABS: Vitamin D 25-OH Total 33.1 ng/mL (>30)
[2024-07-30 21:09] LABS: Calcium, Ionized 5.3 mg/dL (4.7-5.5)
== END 2024-07-27 15:17 | disposition home or self-care (01) ==
LOC: HO.WFDLDS 15:16
PROVIDERS: Visit Provider Nurse Practitioner Family
DX: E55.9 Vitamin D deficiency, unspecified (principal); E83.52 Hypercalcemia; F50.9 Eating disorder, unspecified; Z13.89 Encounter for screening for other disorder
CPT/HCPCS: 80053; 80307; 81001; 82306; 82330

== ENCOUNTER 2024-09-03 11:52 | Outpatient (AMB) | payer BC, SELFPAY ==
--- NOTE | 2024-09-03 11:54 | MHC.PC.OV ---
Vital Signs 09/03/24 11:57 Height 6 ft 1 in Weight 194 lb BMI 25.6 BP 118/70 Blood Pressure Location Rt brachial Position Sitting Respiration 13 Pulse 59 Pulse Source Pulse Oximeter Pulse Oximetry (%) 99 Oxygen Delivery Method Room Air Intake Visit Reasons: Jul/Aug CPE Intake Note: Cpe visit. Patient is not clear why his here today. Insurance Claims Analyst Required: No Allergies No Known Allergies [No Known Allergies*] Allergy (Verified 09/03/24 12:12) Medication List - Last Reconciled 09/03/24 by Ani Kraus, [facility] budesonide-formoterol 80-4.5 mcg/actuation (Symbicort) 2 puffs inhalation BID montelukast (Singulair) 10 mg PO BEDTIME Tobacco use date assessed: 06/15/24 Dental Screening Dental Screen Date: 09/03/24 Did you have a dental visit in the last 12 months?: Yes Did you have a dental problem in the last 6 months where you did not have access to dental care?: No Was dental information given to patient?: Patient has dentist HPI HPI Comments History of Present Illness Details 23-year-old with generalized anxiety disorder, MDD, asthma, marijuana use, eating disorder, vit d def Specialists: Counselor Pulm - annual visits only Health Maintenance: Tdap today Flu today Optho wears glasses, last eye exam February 2023 History of Present Illness The patient is a 23-year-old male presenting for his annual wellness visit. He has a history of anxiety and has been managing it through counseling and self-care methods like meditation and exercise. The patient has been inconsistent with psychiatric medications, reporting numerous trials without perceived benefit and prefers to avoid medication currently. He was unable to secure an appointment with a psychiatrist despite previous referrals and feels current therapy alone is insufficient. The patient is open to considering Transcranial Magnetic Stimulation (TMS) as his mother has been advocating for this approach. Additionally, the patient's asthma is managed with an inhaler and Singulair, with a recent prescription refill noted. No acute exacerbations were reported. He was vitamin-D deficiency but stopped taking his vitamin-D he also was supposed to be taking a calcium supplement but has also stopped taking that. Health Maintenance - Recommended and agreed to administer influenza and tetanus vaccines during the visit - Reported compliance with routine eye exams, last completed in February or March of the previous year - Advised to continue engaging in regular physical activity and meditation as part of mental health management Review of Systems - Engages in regular physical activity and meditation for mental well-being - Employed, impacted by inability to secure psychiatric appointments due to work hours - Single, with no new sexual partners and no current concerns about sexually transmitted infections - Respiratory: Reports adequate control of asthma symptoms using inhaler and Singulair - Psychology: Reports difficulty benefiting from prior medication regimen for anxiety; expresses hesitation about future psychiatric medications Plan - Anxiety: Continue to see the therapist, Cornelio, regularly. Follow up with the referral to psychiatry for TMS evaluation as non-pharmacological treatment is preferred. Ensure that the social work department manages psychiatric referrals effectively, message sent to Alice Finn to follow up. - Medication Non-compliance: Discuss concerns with medication history with TMS team. Consider establishing a new psychiatric plan. - Asthma: Refill prescriptions for inhaler and Singulair. Monitor symptoms and ensure rescue inhaler availability. - Preventive Health: Administer influenza and tetanus vaccines today. Review other precautionary measures during next follow-up. Patient was informed and verbally consented to the use of an ambient scribe for clinic note documentation during this visit. Discussion Notes During today?s visit, we discussed the need for continued mental health support given the patient's reluctance to continue psychiatric medications without perceived benefit. He expressed a willingness to consider TMS as proposed by his mother and acknowledged the need for an updated psychiatric evaluation. I emphasized that TMS is not a medication and could aid his management. Arrangements were made to ensure follow-up on his over-due referral. His asthma management appears satisfactory, with prescriptions sent for necessary refills. Vaccinations were discussed, and he agreed to receive his flu and tetanus shots. I encouraged the continuation of his active lifestyle and meditation practice as part of comprehensive health management. Patient Instructions - Continue with regular therapy sessions with Cornelio. - Follow up with psychiatric services for TMS evaluation. - Attend to asthma management closely with advised medications. - Receive flu and tetanus vaccinations today. - Maintain an active lifestyle and practice meditation. - Return for follow-up in six months or sooner if symptoms or concerns arise. - Contact us if you have any new or worsening symptoms, or questions regarding the visit. Follow-up in six months for asthma, with the possibility of earlier review if needed. After the visit the patient's mother called stating that he was under the care of Dr. Soriano has a psychiatrist at [facility] and at [facility] previously he has been without a psychiatrist since this time he was seen at [facility] not and TMs therapy was recommended however did not meet the criteria based on health insurance at that time. He is done with taking medications and she does not understand why he can not get a referral she states he was diagnosed with borderline personality a few years ago reports that the patient is feeling frustrated and wants to transfer to a new primary care provider as he does not feel like he is getting the care that he needs for me. She reports that she feels like she is stuck in the middle trying to keep him calm and is not sure if he is telling her the whole story or not. I did make her aware that karissa Soto does not have a release of information to discuss matters with her and that she would have to follow up with him directly. I did let her know that I work hard everyday to provide the best care to all patients and provide exceptional support and I apologize that she and her son felt that way. Alice Finn did reach out to the patient and was unable to reach him by phone and left a message for him to call her back to arrange for [facility]. Several efforts have been made to contact this patient however he does not return calls he does not follow up. This is a very complex situation as he does not follow up or through with his care team, to include nurse navigation support and mental health care. He has the crisis information available to him should he need it. An additional 20 minutes was spent addressing the problem(s) noted at todays visit. This includes time spent before the visit reviewing the chart, time spent during the visit, and time spent after the visit on documentation [facility] Medical History (Updated 09/03/24 @ 15:54 by Ani Kraus, [facility]) Personality disorder Depression Asthma Anxiety Surgical History (Updated 03/27/24 @ 13:53 by Philly Luciano [facility]) No pertinent past surgical history Social History (Reviewed 06/28/23 @ 12:59 by Jair Anderson [facility]) Housing: House Patient Tobacco Use Status: Never used Tobacco e-Cigarette/Vaping Use: Never Used Second Hand Smoke Exposure: No service: No Current occupational status: employed Current occupation: [employer] Current occupational exposures/hazards: No Cognitive needs: No Hearing needs: No Vision needs: No Questionnaire PHQ-9 Over the last 2 weeks, how often have you been bothered by any of the following problems? 26941 - PHQ-9 Billing: Patient declined-do not bill Source: Developed by Drs. Jj Moulton, Nicolasa Mcgovern, Davey Haines and colleagues, with an educational sis from [employer]. Thrive Questionnaire Date Thrive assessed: 09/03/24 I am a: Patient What is your living situation today?: I have a steady place to live Within the past 12 months, did the food you bought not last and you didn't have the money to get more?: Never true Within the past 12 months, did you worry whether your food would run out before you got money to buy more?: Never true Do you have trouble paying for medicines?: No Do you have trouble getting transportation to medical appointments?: No Do you have trouble paying your heating and electricity bill?: No Do you have trouble taking care of your child, family member or friend?: No Do you have trouble with day-to-day activities such as bathing, preparing meals, shopping, managing finances, etc.?: No Are you currently unemployed and looking for a job?: No Are you interested in more education?: No Please select the resources that you would like help with: None Currently or been in a relationship where the following occur: I choose not to answer THRIVE Score: 0 YOVANI-7 AMB Questionnaire YOVANI-7 Date YOVANI - 7 assessed: 07/27/24 Source: Developed by Drs. Jj Moulton, Nicolasa Mcgovern, Davey Haines and colleagues, with an educational sis from [employer]. ACT Questionnaire In the past 4 weeks, how much of the time did your asthma keep you from getting as much done at work, school or at home?: None of the time During the past 4 weeks, how often have you had shortness of breath?: Not at all During the past 4 weeks, how often did your asthma symptoms wake you up at night or earlier than usual in the morning?: Not at all During the past 4 weeks, how often have you had to use your rescue inhaler or nebulizer medication?: Not at all How would you rate your asthma control during the past 4 weeks?: Completely controlled ACT Interpretation: Negative Score: 25 Physical exam (Primary Care) Vital Signs: Last Vital Signs Pulse 59 09/03/24 11:57 Resp 13 09/03/24 11:57 BP 118/70 09/03/24 11:57 Pulse Ox 99 09/03/24 11:57 Oxygen Delivery Method Room Air 09/03/24 11:57 BMI result Body Mass Index 25.6 Tobacco/Smoking Status: Tobacco use Status Tobacco use date assessed 06/15/24 09/03/24 11:56 Patient Tobacco Use Status Never used Tobacco 09/03/24 11:56 e-Cigarette/Vaping Use Never Used 09/03/24 11:56 Thrive Assessment: Date of Thrive Assessment Date Thrive assessed 09/03/24 09/03/24 11:56 Currently or been in a relationship where the following occur: I choose not to answer Const Other: General: Well developed, well nourished, in no acute distress. Appears stated age. Head: Normocephalic, atraumatic. Eyes: Pupils are equal, round and reactive to light and accommodation. Conjunctivae are clear. Vision grossly normal. Ears: TMs clear AU, EACS WNL Nose: Patent, without discharge. Mouth: There are no ulcers or lesions noted. No inflammation, no post nasal drip, no plaques nor exudates. Neck: Supple, no adenopathy or thyromegaly. Lungs: Clear to auscultation bilaterally. No rales, rhonchi or wheeze noted. Good air flow in all holguin. Heart: Regular rate and rhythm. No murmurs, click, rubs or gallops are noted. Abdomen: Bowel sounds present in all quadrants. The abdomen is soft, nontender, with no masses or organomegaly noted. No hernias are noted. Musculoskeletal: Joints are nontender, without swelling, redness, or effusions. Range of motion is observed to be normal. Pulses: Peripheral pulses are equal and palpable bilaterally. Extremities: No clubbing, cyanosis nor edema is noted. Neurologic: Gait and station normal. Cranial Nerves 2-12 intact. Motor strength grossly symmetrical and intact. No sensory loss. Balance normal. Skin: No rashes, ulcers, or lesions noted. Turgor is good. Skin color is good. Hair and nails are without abnormalities. Psych: Normal eye contact, affect and mood appropriate, and normal interactions. Patient is alert and appropriate to context. Office Procedures Flu Questionnaire Does the patient have a severe egg allergy?: No Does the patient have severe life threatening allergies?: No Does the patient have a fever or illness today?: No Has the patient ever had Guillain-Waterloo Syndrome?: No Has the patient ever had any past reaction to a flu shot?: No Immunizations Fluarix Triv [id number] (PF) 45 mcg (15 mcg x 3)/0.5 mL IM syringe Performing Provider: JUDITH Zavala Performing Location: [employer] [employer] [facility] [facility] Administered by: Alice Devries RN on 09/03/24 12:42 Dose Route Admin Location Dispensed Lot Number Expiration Date NDC Cork Mixer 0.5 mL IM Right Deltoid 0.5 mL [id number] 03/25/25 [id number] [email or web address] VIS Given Date VIS Provided VIS Publication Date 09/03/24 Single Vaccine 21 Eligibility Eligibility Date Funding Source Not VFC Eligible 09/03/24 Private Boostrix Tdap 2.5 Lf unit-8 mcg-5 Lf/0.5 mL intramuscular syringe Performing Provider: JUDITH Zavala Performing Location: [facility] [facility] Administered by: Alice Devries RN on 09/03/24 12:42 Dose Route Admin Location Dispensed Lot Number Expiration Date NDC Cork Mixer 0.5 mL IM Left Deltoid 0.5 mL [id number] 10/17/26 [id number] [id number] VIS Given Date VIS Provided VIS Publication Date 09/03/24 Single Vaccine 21 Eligibility Eligibility Date Funding Source Not VFC Eligible 09/03/24 Private Coding Level of Care Code Est Pt Level 3 (02698) Est Pt Prev Care 18-39y(60903) Diagnoses Encounter for general adult medical examination without abnormal findings Z00.00 Need for Tdap vaccination Z23 Influenza vaccination administered at current visit Z23 Moderate episode of recurrent major depressive disorder F33.1 Major depression episode severity: moderate Mild restricting type anorexia nervosa F50.010 Eating disorder type: restricting type anorexia nervosa Eating disorder severity or remission status: mild Personality disorder F60.9 YOVANI (generalized anxiety disorder) F41.1 Vitamin D deficiency E55.9 Additional Codes Asthma Control Questionnaire - ACT Interpretation: Negative ([id number]) Assessment & Plan Assessment & Plan (1) Encounter for general adult medical examination without abnormal findings: Code(s): Z00.00 - Encounter for general adult medical examination without abnormal findings (2) Need for Tdap vaccination: Code(s): Z23 - Encounter for immunization Category: Medical (3) Influenza vaccination administered at current visit: Code(s): Z23 - Encounter for immunization (4) MDD (major depressive disorder), recurrent episode: Code(s): F33.9 - Major depressive disorder, recurrent, unspecified Category: Medical Qualifiers: Major depression episode severity: moderate Qualified Code(s): F33.1 - Major depressive disorder, recurrent, moderate (5) Eating disorder: Code(s): F50.9 - Eating disorder, unspecified Category: Medical Qualifiers: Eating disorder type: restricting type anorexia nervosa Eating disorder severity or remission status: mild Qualified Code(s): F50.010 - Anorexia nervosa, restricting type, mild (6) Personality disorder: Code(s): F60.9 - Personality disorder, unspecified Category: Medical (7) YOVANI (generalized anxiety disorder): Code(s): F41.1 - Generalized anxiety disorder Category: Medical (8) Vitamin D deficiency: Code(s): E55.9 - Vitamin D deficiency, unspecified Category: Medical Plan . Orders: Orders Influenza [id number] Immunization Today Z23 - Encounter for immunization TDaP Immunization Today Z23 - Encounter for immunization Medications: Refilled montelukast (Singulair) 10 mg PO BEDTIME 90 tabs 2RF budesonide-formoterol 80-4.5 mcg/actuation (Symbicort) 2 puffs inhalation BID 10.2 grams 12RF Patient Instructions: Health screenings for men You should visit your health care provider regularly, even if you feel healthy. The purpose of these visits is to: Screen for medical issues Assess your risk for future medical problems Encourage a healthy lifestyle Update vaccinations and other preventive care services Help you get to know your provider in case of an illness Information Even if you feel fine, you should still see your provider for regular checkups. These visits can help you avoid problems in the future. For example, the only way to find out if you have high blood pressure is to have it checked regularly. High blood sugar and high cholesterol level also may not have any symptoms in the early stages. Simple blood tests can check for these conditions. There are specific times when you should see your provider or receive specific health screenings. The [place] Preventive Services Task Force publishes a list of recommended screenings. Below are screening guidelines for men ages 40 to 64. BLOOD PRESSURE SCREENING Have your blood pressure checked at least once every year. Watch for blood pressure screenings in your area. Ask your provider if you can stop in to have your blood pressure checked. Ask your provider if you need your blood pressure checked more often if: You have diabetes, heart disease, kidney problems, or are overweight or have certain other health conditions You have a first-degree relative with high blood pressure You are Black Your blood pressure top number is from 120 to 129 mm Hg, or the bottom number is from 70 to 79 mm Hg If the top number is 130 mm Hg or greater or the bottom number is 80 mm Hg or greater, this is considered stage 1 hypertension. Schedule an appointment with your provider to learn how you can lower your blood pressure. Effects of age on blood pressure CHOLESTEROL SCREENING Cholesterol screening should begin at age 35 for men with no known risk factors for coronary heart disease. Repeat cholesterol screening should take place: Every 5 years for men with normal cholesterol levels More often if changes occur in lifestyle (including weight gain and diet) More often if you have diabetes, heart disease, kidney problems, or certain other conditions COLORECTAL CANCER SCREENING If you are under age 45, talk to your provider about getting screened. You may need to be screened if you have a strong family history of colon cancer or polyps. Screening may also be considered if you have risk factors such as a history of inflammatory bowel disease or polyps. If you are age 45 to 75, you should be screened for colorectal cancer. There are several screening tests available: A stool-based fecal occult blood (gFOBT) or fecal immunochemical test (FIT) every year A stool sDNA test every 1 to 3 years Flexible sigmoidoscopy every 5 years or every 10 years with stool testing FIT done every year CT colonography (virtual colonoscopy) every 5 years Colonoscopy every 10 years You may need a colonoscopy more often if you have risk factors for colorectal cancer, such as: Ulcerative colitis A personal or family history of colorectal cancer A history of growths in your colon called adenomatous polyps DENTAL EXAM Go to the dentist once or twice every year for an exam and cleaning. Your dentist will evaluate if you have a need for more frequent visits. DIABETES SCREENING All adults who do not have risk factors for diabetes should be screened starting at age 35 and repeated every 3 years. If you have other risk factors for diabetes, such as a first degree relative with diabetes, overweight or obesity, high blood pressure, prediabetes, or a history of heart disease, you may be tested more often. If you are overweight and have other risk factors, such as high blood pressure and are planning to become , screening is recommended. EYE EXAM Have an eye exam every 2 to 4 years ages 40 to 54 and every 1 to 3 years ages 55 to 64. Your provider may recommend more frequent eye exams if you have vision problems or glaucoma risk. Have an eye exam that includes an examination of your retina (back of your eye) at least every year if you have diabetes. IMMUNIZATIONS Commonly needed vaccines include: Flu shot: get one every year COVID-19 vaccine: ask your provider what is best for you Tetanus-diphtheria and acellular pertussis (Tdap) vaccine: have as one of your tetanus-diphtheria vaccines if you did not receive it as an adolescent Tetanus-diphtheria: have a booster (or Tdap) every 10 years Varicella vaccine: receive 2 doses if you never had chickenpox or the varicella vaccine and were born in 1979 or after Hepatitis B vaccine: receive 2, 3, or 4 doses, depending on your exact circumstances, if you did not receive these as a child or adolescent, until age 59 Shingles (herpes zoster) vaccine: at or after age 50 Ask your provider if you should receive other immunizations, especially if you have certain medical conditions, such as diabetes or are at increased risk for some diseases such as pneumonia. INFECTIOUS DISEASE SCREENING Screening for hepatitis C: all adults ages 18 to 79 should get a one-time test for hepatitis C. Screening for human immunodeficiency virus (HIV): all people ages 15 to 65 should get a one-time test for HIV. Depending on your lifestyle and medical history, you may need to be screened for infections such as syphilis, chlamydia, and other infections. LUNG CANCER SCREENING You should have an annual screening for lung cancer with low-dose computed tomography (LDCT) if: You are age 50 to 80 years AND You have a 20 pack-year smoking history AND You currently smoke or have quit within the past 15 years OSTEOPOROSIS SCREENING If you are age 50 to 64 and have risk factors for osteoporosis, you should discuss screening with your provider. Risk factors can include long-term steroid use, low body weight, smoking, heavy alcohol use, having a fracture after age 50, or a family history of hip fracture or osteoporosis. Osteoporosis PHYSICAL EXAM All adults should visit their provider from time to time, even if they are healthy. The purpose of these visits is to: Screen for diseases Assess risk of future medical problems Encourage a healthy lifestyle Update vaccinations and other preventive care services Maintain a relationship with a provider in case of an illness Your height, weight, and body mass index (BMI) should be checked at every exam. During your exam, your provider may ask you about: Depression and anxiety Diet and exercise Alcohol and tobacco use Safety, such as use of seat belts and smoke detectors Your medicines and risk for interactions PROSTATE CANCER SCREENING If you're 55 through 69 years old, before having the test, talk to your provider about the pros and cons of having a PSA test. Ask about: Whether screening decreases your chance of dying from prostate cancer. Whether there is any harm from prostate cancer screening, such as side effects from testing or overtreatment of cancer when discovered. Whether you have a higher risk of prostate cancer than others. If you are age 55 or younger, screening is not generally recommended. You should talk with your provider about if you have a higher risk for prostate cancer. Risk factors include: Having a family history of prostate cancer (especially a brother or father) Being If you choose to be tested, the PSA blood test is repeated over time (yearly or less often), though the best frequency is not known. Prostate examinations are no longer routinely done on men with no symptoms. Prostate cancer SKIN EXAM Your provider may check your skin for signs of skin cancer, especially if you're at high risk. People at high risk include those who have had skin cancer before, have close relatives with skin cancer, or have a weakened immune system. TESTICULAR EXAM The [place] Preventive Services Task Force (USPSTF) now recommends against performing testicular self-exams. Doing testicular self-exams has been shown to have little to no benefit.
[2024-09-03 11:57] VITALS: BP 118/70; PULSE 59; RESP 13; O2SAT 99; BMI 25.6
== END 2024-09-03 12:37 | disposition home or self-care (01) ==
PROVIDERS: PCP Nurse Practitioner Family; Visit Provider Nurse Practitioner Family
DX: Z00.00 Encounter for general adult medical examination without abnormal findings (principal); F50.01 Anorexia nervosa, restricting type; F33.1 Major depressive disorder, recurrent, moderate; F60.9 Personality disorder, unspecified; F41.1 Generalized anxiety disorder; E55.9 Vitamin D deficiency, unspecified; Z23 Encounter for immunization

== ENCOUNTER → 2024-09-03 11:52 | Outpatient (BNVA) | payer BC, SELFPAY | PROVIDERS: PCP Nurse Practitioner Family; Visit Provider Nurse Practitioner Family | DX: Z00.00 Encounter for general adult medical examination without abnormal findings (principal); Z23 Encounter for immunization; F33.1 Major depressive disorder, recurrent, moderate; F50.01 Anorexia nervosa, restricting type; F60.9 Personality disorder, unspecified; F41.1 Generalized anxiety disorder; E55.9 Vitamin D deficiency, unspecified | CPT/HCPCS: 90471; 90472; 90656; 90715; 96160 ==

== ENCOUNTER → 2024-11-15 15:33 | Outpatient (BNV) | payer BC, SELFPAY | PROVIDERS: Visit Provider Clinical Nurse Specialist Psychiatric/Mental Health | DX: F33.2 Major depressive disorder, recurrent severe without psychotic features (principal); F41.1 Generalized anxiety disorder | CPT/HCPCS: 99214 ==

== ENCOUNTER 2024-12-26 09:12 | Outpatient (AMB) | payer BC, SELFPAY ==
--- NOTE | 2024-12-26 09:14 | A.OFFPC_ITS ---
Vital Signs 12/26/24 09:17 Height 6 ft 1 in Weight 189 lb 6 oz BMI 25.0 BP 123/59 L Blood Pressure Location Rt brachial Position Sitting Respiration 16 Pulse 63 Pulse Source Pulse Oximeter Temp 98.4 F Temp Source Oral Pulse Oximetry (%) 100 Oxygen Delivery Method Room Air Intake Visit Reasons: cough/wheezing Intake Note: patient here c/o cough and wheezing Forest Pathology Teacher Required: No Allergies No Known Allergies [No Known Allergies*] Allergy (Verified 12/26/24 09:22) Medication List - Last Reconciled 12/26/24 by Ani Kraus, DREDGE PIPE INSTALLER- albuterol sulfate 0.63 mg (3 mL) inhalation QID PRN budesonide-formoterol 80-4.5 mcg/actuation (Symbicort) 2 puffs inhalation BID montelukast (Singulair) 10 mg PO BEDTIME Tobacco use date assessed: 12/26/24 Dental Screening Dental Screen Date: 12/26/24 Did you have a dental visit in the last 12 months?: Yes Did you have a dental problem in the last 6 months where you did not have access to dental care?: No Was dental information given to patient?: Patient has dentist HPI HPI Comments History of Present Illness Details 24-year-old male with moderate persisten t asthma here today with complaints of wheezing for the last few weeks. He reports that he suffered a URI. While all the symptoms have resolved he continues with wheezing. He did go to urgent care on Tuesday. He reports that he was told his exam was benign and no changes to his treatment or provided. He was taking his Symbicort daily in his montelukast. He feels like when he was using his albuterol nebulizer he has worsening of his symptoms therefore he was stopped. Reports that he does not have an albuterol HFA. Unsure why. Reports wheezing is worse when in hot humid environments such as at work. Denies fever, chills, cough. Interested in Pulm referral. Exam Awake alert NAD Sclera and conjunctiva clear bilat Nares patent, turbinates within normal limits, no sinus tenderness with palpation bilat TM intact and clear bilat MMM, pharynx WNL RRR LS CTAB Plan Start albuterol MDI Start Combivent 1 puff q.i.d. Start levocetirizine 5 mg p.o. daily Continue Symbicort and montelukast Refer to pulmonology Advised to clean nebulizer to include tubing and filter to see if this improves use Educated on reasons to return to the office or seek additional care This note is constructed using voice recognition software. While every effort has been made to ensure accuracy in outside plant cable engineer, still errors may have been included Sometimes, these errors may affect the content or meaning of the given sentence . Total time spent caring for the patient today was 30 minutes. This includes time spent before the visit reviewing the chart, time spent during the visit, and time spent after the visit on documentation, reviewing laboratory results, diagnostic imaging, medications, performing a medically necessary evaluation, counseling on diagnoses, care coordination, ordering appropriate tests, ordering appropriate medications, review of tests performed by other providers, reporting test results with the patient, communication with other healthcare providers. [facility] Medical History (Updated 12/26/24 @ 09:36 by Ani Kraus, [facility]) Anxiety Asthma Depression Personality disorder Surgical History (Updated 03/27/24 @ 13:53 by [facility]) No pertinent past surgical history Social History Housing: House Patient Tobacco Use Status: Never used Tobacco e-Cigarette/Vaping Use: Never Used Second Hand Smoke Exposure: No service: No Current occupational status: employed Current occupation: [employer] [place] Current occupational exposures/hazards: No Cognitive needs: No Hearing needs: No Vision needs: No Questionnaire PHQ-9 Over the last 2 weeks, how often have you been bothered by any of the following problems? 1. Little interest or pleasure in doing things: not at all 2. Feeling down, depressed, or hopeless: not at all 3. Trouble falling or staying asleep, or sleeping too much: not at all 4. Feeling tired or having little energy: not at all 5. Poor appetite or overeating: not at all 6. Feeling bad about yourself - or that you are a failure or have let yourself or your family down: not at all 7. Trouble concentrating on things, such as reading the newspaper or watching television: not at all 8. Moving or speaking so slowly that other people could have noticed. Or the opposite - being so fidgety or restless that you have been moving around a lot more than usual: not at all 9. Thoughts that you would be better off or of hurting yourself in some way: not at all Total score: 0 Depression Screening Interpretation: Negative Depression Screening Done: Yes 65715 - PHQ-9 Billing: Yes Source: Developed by Drs. Jj Moulton, Nicolasa Mcgovern, Davey Haines and colleagues, with an educational sis from [employer]. Thrive Questionnaire Date Thrive assessed: 12/25/24 I am a: Patient What is your living situation today?: I have a steady place to live Within the past 12 months, did the food you bought not last and you didn't have the money to get more?: Never true Within the past 12 months, did you worry whether your food would run out before you got money to buy more?: Never true Do you have trouble paying for medicines?: No Do you have trouble getting transportation to medical appointments?: No Do you have trouble paying your heating and electricity bill?: No Do you have trouble taking care of your child, family member or friend?: No Do you have trouble with day-to-day activities such as bathing, preparing meals, shopping, managing finances, etc.?: No Are you currently unemployed and looking for a job?: No Are you interested in more education?: I choose not to answer this question Please select the resources that you would like help with: None Currently or been in a relationship where the following occur: No concerns reported THRIVE Score: 0 AUDIT C Alcohol Use Questionnaire (AUDIT-C) 1. How often do you have a drink containing alcohol?: Never 2. How many drinks containing alcohol do you have on a typical day when you are drinking?: 1 or 2 3. How often do you have six or more drinks on one occasion?: Never Total Score: 0 Score Reviewed/Action Taken: Yes YOVANI-7 AMB Questionnaire YOVANI-7 Date YOVANI - 7 assessed: 07/27/24 Feeling nervous, anxious, or on edge: 0 = Not at all Not being able to stop or control worryin = Not at all Worrying too much about different things: 0 = Not at all Trouble relaxin = Not at all Being so restless that it is hard to sit still: 0 = Not at all Becoming easily annoyed or irritable: 0 = Not at all Feeling afraid as if something awful might happen: 0 = Not at all Total YOVANI-7 score (0-4 normal; 5-9 mild; 10-14 moderate; 15-21 severe): 0 Source: Developed by Drs. Jj Moulton, Nicolasa Mcgovern, Davey Haines and colleagues, with an educational sis from [employer]. ACT Questionnaire In the past 4 weeks, how much of the time did your asthma keep you from getting as much done at work, school or at home?: None of the time During the past 4 weeks, how often have you had shortness of breath?: Not at all During the past 4 weeks, how often did your asthma symptoms wake you up at night or earlier than usual in the morning?: Not at all During the past 4 weeks, how often have you had to use your rescue inhaler or nebulizer medication?: Not at all How would you rate your asthma control during the past 4 weeks?: Completely controlled ACT Interpretation: Negative Score: 25 Physical exam (Primary Care) Vital Signs: Last Vital Signs Temp 98.4 F 12/26/24 09:17 Pulse 63 12/26/24 09:17 Resp 16 12/26/24 09:17 BP 123/59 L 12/26/24 09:17 Pulse Ox 100 12/26/24 09:17 Oxygen Delivery Method Room Air 12/26/24 09:17 BMI result Body Mass Index 25.0 Tobacco/Smoking Status: Tobacco use Status Tobacco use date assessed 12/26/24 12/26/24 09:20 Patient Tobacco Use Status Never used Tobacco 12/26/24 09:15 e-Cigarette/Vaping Use Never Used 12/26/24 09:15 PHQ-9: PHQ-9 Score PHQ-9: Total score 0 12/26/24 09:15 Depression Screening Interpretation: Negative Thrive Assessment: Date of Thrive Assessment Date Thrive assessed 12/25/24 12/26/24 09:15 Currently or been in a relationship where the following occur: No concerns reported Coding Level of Care Code Est Pt Level 4 (81480) Complex EM visit Add On G2211 Diagnoses Moderate persistent asthma without complication J45.40 Asthma severity: moderate Asthma persistence: persistent Asthma complication type: uncomplicated Seasonal allergies J30.2 Additional Codes PHQ-9 - 62287 - PHQ-9 Billing: Yes ([id number]) Asthma Control Questionnaire - ACT Interpretation: Negative ([id number]) Assessment & Plan Assessment & Plan (1) Asthma: Code(s): J45.909 - Unspecified asthma, uncomplicated Category: Medical Qualifiers: Asthma severity: moderate Asthma persistence: persistent Asthma complication type: uncomplicated Qualified Code(s): J45.40 - Moderate persistent asthma, uncomplicated (2) Seasonal allergies: Code(s): J30.2 - Other seasonal allergic rhinitis Category: Medical Plan . Orders: Referrals Pulmonology Referral J45.40 - Moderate persistent asthma, uncomplicated Medications: New albuterol sulfate 90 mcg/actuation 2 puffs inhalation Q4-6H 30 days PRN 6.7 grams 1RF shortness of breath or wheezing ipratropium-albuterol 20-100 mcg/actuation (Combivent Respimat) space evenly during waking hours 1 puff inhalation QID 4 grams 1RF levocetirizine 5 mg PO DAILY 90 tabs 1RF
[2024-12-26 09:17] VITALS: BP 123/59; PULSE 63; RESP 16; TEMP 36.9; O2SAT 100; BMI 25.0
--- OUTSIDE RECORDS SUMMARY | 2024-12-26 10:07 | XMS_ITS | Clinical Summary ---
Author Organization [facility] ity Address [address] [place] [address] Care Team Providers Care Director Food Safety Name Role Phone Unavailable Primary Care Provider Unavailabl e Social History Tobacco Use Types Packs/Day Years Used Date Smoking Tobacco: Never Assessed Sex and Gender Information Value Date Recorded Sex Assigned at Not on file Legal Sex Male 11:08 AM EDT Gender Identity Not on file Sexual Orientation Not on file Plan of Treatment Health Maintenance Due Date Last Done Comments HPV Vaccines (1 - Male 3-dos e series) 2016 Meningococcal B Vacine (1 of 2 - Standard) 2017 DTaP,Tdap,and Td Vaccines (1 - Tdap) 2020 Hepatitis B Vaccines (1 of 3 - 19+ 3-dose series) 2020 Depression Screening 04/17/2024 HIV Screening 04/17/2024 Hepatitis C Screening 04/17/2024 Social Influencers of Health Screening 04/17/2024 COVID-19 Vaccine (1 - 2023-2 5 season) 2024 Influenza Vaccine (#1) 2024 HIB Vaccines Aged Out No longer eligi ble based on patient's age to complete this topic Hepatitis A Vaccines Aged Out No long er eligible based on patient's age to complete this topic IPV Vaccines Aged Out No longer eligi ble based on patient's age to complete this topic MMR Vaccines Aged Out No longer eligi ble based on patient's age to complete this topic Meningococcal ACWY Vaccine Aged Out N o longer eligible based on patient's age to complete this topic Pneumococcal Vaccine: Pediat rics (0 to 5 Years) and At-Risk Patients (6 to 64 Years) Aged Out No longer eligible b ased on patient's age to complete this topic RSV Immunization Patients Un gertrudis 20 months Aged Out No longer eligible b ased on patient's age to complete this topic Varicella Vaccines Aged Out No longer eligible based on patient's age to complete this topic
== END 2024-12-26 09:37 | disposition home or self-care (01) ==
LOC: HO.HMCFM 09:12
PROVIDERS: PCP Nurse Practitioner Family; Visit Provider Nurse Practitioner Family
DX: J45.40 Moderate persistent asthma, uncomplicated (principal); J30.2 Other seasonal allergic rhinitis

== ENCOUNTER → 2024-12-26 09:12 | Outpatient (BNVA) | payer BC, SELFPAY | PROVIDERS: PCP Nurse Practitioner Family; Visit Provider Nurse Practitioner Family | DX: J45.40 Moderate persistent asthma, uncomplicated (principal); J30.2 Other seasonal allergic rhinitis | CPT/HCPCS: 96127; 96160 ==

== ENCOUNTER 2025-01-28 14:30 | Outpatient (RCR) | payer BC, SELFPAY ==
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
--- NOTE | 2024-12-03 17:09 | P.PNPS_ITS ---
TMS Daily Progress Note Daily TMS Progress Note Date of Service: 12/03/24 Week #: 1 Treatment #(10-25): 1 PHQ-9 Pre-Treatment (-): 19 PHQ-9 Most Recent (10-22): 25 YOVANI-7 Pre-Treatment (0-21): 20 YOVANI-7 Most Recent (0-21): 20 Reviewed: TMS Mapping/Re-mapping completed Verification: I have reviewed the TMS Pourer Bull Ladle Note and agree with the contents. The patient remains a candidate to continue TMS treatment per protocol. Assessment and Plan (1) Major depressive disorder, recurrent severe without psychotic features: Status: Acute Plan continue TMS treatment plan SMT 0.78 and able to move from 85 to 90 % tolerated well Total time managing care of this patient today: 30 minutes.
--- NOTE | 2025-01-10 15:35 | P.PNPS_ITS ---
TMS Daily Progress Note Daily TMS Progress Note Date of Service: 01/10/25 Week #: 5 Treatment #(-): 25 PHQ-9 Pre-Treatment (1-): 25 PHQ-9 Most Recent (10-22): 0 YOVANI-7 Pre-Treatment (0-21): 19 YOVANI-7 Most Recent (0-21): 0 CGI-I Most Recent: 0 = Not Assessed Reviewed: TMS Tech Note Reviewed Verification: I have reviewed the TMS Poultry Farm Laborer Note and agree with the contents. The patient remains a candidate to continue TMS treatment per protocol. Assessment and Plan (1) Major depressive disorder, recurrent severe without psychotic features: Status: Acute Plan continue tms t x plan
--- NOTE | 2025-01-21 21:16 | P.PNPS_ITS ---
TMS Daily Progress Note Daily TMS Progress Note Date of Service: 12/04/24 Week #: 1 Treatment #(10-25): 2 PHQ-9 Pre-Treatment (-): 25 PHQ-9 Most Recent (10-22): 25 YOVANI-7 Pre-Treatment (0-21): 19 YOVANI-7 Most Recent (0-21): 0 CGI-I Most Recent: 0 = Not Assessed Reviewed: TMS Tech Note Reviewed Verification: I have reviewed the TMS Wedding Photographer Note and agree with the contents. The patient remains a candidate to continue TMS treatment per protocol. Assessment and Plan (1) Major depressive disorder, recurrent severe without psychotic features: Status: Acute Plan some fatigue post tx no significant side effects noted
--- NOTE | 2025-01-21 21:17 | P.PNPS_ITS ---
TMS Daily Progress Note Daily TMS Progress Note Date of Service: 12/06/24 Week #: 1 Treatment #(10-25): 4 PHQ-9 Pre-Treatment (-): 25 PHQ-9 Most Recent (10-22): 25 YOVANI-7 Pre-Treatment (0-21): 19 YOVANI-7 Most Recent (0-21): 0 CGI-I Most Recent: 0 = Not Assessed Reviewed: TMS Tech Note Reviewed Verification: I have reviewed the TMS Gut Dropper Note and agree with the contents. The patient remains a candidate to continue TMS treatment per protocol. Assessment and Plan (1) Major depressive disorder, recurrent severe without psychotic features: Status: Acute Plan Continue plan of care no change indicated this time perhaps some fatigue
--- NOTE | 2025-01-21 21:17 | P.PNPS_ITS ---
TMS Daily Progress Note Daily TMS Progress Note Date of Service: 12/07/24 Week #: 1 Treatment #(10-25): 5 PHQ-9 Pre-Treatment (1-): 25 PHQ-9 Most Recent (10-22): 25 YOVANI-7 Pre-Treatment (0-21): 19 YOVANI-7 Most Recent (0-21): 0 CGI-I Most Recent: 0 = Not Assessed Reviewed: TMS Tech Note Reviewed Verification: I have reviewed the TMS Residential Property Manager Note and agree with the contents. The patient remains a candidate to continue TMS treatment per protocol. Assessment and Plan (1) Major depressive disorder, recurrent severe without psychotic features: Status: Acute Plan Continue plan of care no difficulty with treatment remains quite depressed
--- NOTE | 2025-01-21 21:17 | P.PNPS_ITS ---
TMS Daily Progress Note Daily TMS Progress Note Date of Service: 12/12/24 Week #: 2 Treatment #(-): 6 PHQ-9 Pre-Treatment (1-): 25 PHQ-9 Most Recent (10-22): 3 YOVANI-7 Pre-Treatment (0-21): 19 YOVANI-7 Most Recent (0-21): 0 CGI-I Most Recent: 0 = Not Assessed Reviewed: TMS Tech Note Reviewed Verification: I have reviewed the TMS Modeling Analyst Note and agree with the contents. The patient remains a candidate to continue TMS treatment per protocol. Assessment and Plan (1) Major depressive disorder, recurrent severe without psychotic features: Status: Acute Plan Continue plan of care no change indicated at this time PHQ-9 somewhat erratic
--- NOTE | 2025-01-21 21:17 | P.PNPS_ITS ---
TMS Daily Progress Note Daily TMS Progress Note Date of Service: 12/05/24 Week #: 1 Treatment #(10-25): 3 PHQ-9 Pre-Treatment (-): 25 PHQ-9 Most Recent (10-22): 25 YOVANI-7 Pre-Treatment (0-21): 19 YOVANI-7 Most Recent (0-21): 0 CGI-I Most Recent: 0 = Not Assessed Reviewed: TMS Tech Note Reviewed Verification: I have reviewed the TMS Hot Tamale Worker Note and agree with the contents. The patient remains a candidate to continue TMS treatment per protocol. Assessment and Plan (1) Major depressive disorder, recurrent severe without psychotic features: Status: Acute Plan Continue plan of care gradual increase in MT no significant side effects noted
--- NOTE | 2025-01-21 21:58 | P.PNPS_ITS ---
TMS Daily Progress Note Daily TMS Progress Note Date of Service: 12/13/24 Week #: 2 Treatment #(-): 7 PHQ-9 Pre-Treatment (1-): 25 PHQ-9 Most Recent (10-22): 3 YOVANI-7 Pre-Treatment (0-21): 19 YOVANI-7 Most Recent (0-21): 0 CGI-I Most Recent: 0 = Not Assessed Reviewed: TMS Tech Note Reviewed Verification: I have reviewed the TMS Research Chemical Engineer Note and agree with the contents. The patient remains a candidate to continue TMS treatment per protocol. Assessment and Plan (1) Major depressive disorder, recurrent severe without psychotic features: Status: Acute Plan Continue plan of care treatment tolerated no adverse effects noted
--- NOTE | 2025-01-21 22:00 | P.PNPS_ITS ---
TMS Daily Progress Note Daily TMS Progress Note Date of Service: 12/14/24 Week #: 2 Treatment #(10-25): 8 PHQ-9 Pre-Treatment (-): 25 PHQ-9 Most Recent (10-22): 3 YOVANI-7 Pre-Treatment (0-21): 19 YOVANI-7 Most Recent (0-21): 0 CGI-I Most Recent: 0 = Not Assessed Reviewed: TMS Tech Note Reviewed Verification: I have reviewed the TMS Spot Remover Note and agree with the contents. The patient remains a candidate to continue TMS treatment per protocol. Assessment and Plan (1) Major depressive disorder, recurrent severe without psychotic features: Status: Acute Plan Patient feels depression is easing still feels unhappy in work situation and reactivity. No complaints of side effects or difficulty with TMS
--- NOTE | 2025-01-21 22:40 | P.PNPS_ITS ---
TMS Daily Progress Note Daily TMS Progress Note Date of Service: 12/18/24 Week #: 2 Treatment #(-): 9 PHQ-9 Pre-Treatment (1-): 25 PHQ-9 Most Recent (10-22): 3 YOVANI-7 Pre-Treatment (0-21): 19 YOVANI-7 Most Recent (0-21): 0 CGI-I Most Recent: 0 = Not Assessed Reviewed: TMS Tech Note Reviewed Verification: I have reviewed the TMS Director Network Development Note and agree with the contents. The patient remains a candidate to continue TMS treatment per protocol. Assessment and Plan (1) Major depressive disorder, recurrent severe without psychotic features: Status: Acute Plan Continue plan of care no change indicated this time
--- NOTE | 2025-01-22 00:08 | HO.TMSDAILY2 ---
TMS Daily Progress Note Daily TMS Progress Note Date of Service: 12/19/24 Week #: 2 Treatment #(-): 10 PHQ-9 Pre-Treatment (-): 25 PHQ-9 Most Recent (10-22): 10 YOVANI-7 Pre-Treatment (0-21): 19 YOVANI-7 Most Recent (0-21): 0 CGI-I Most Recent: 0 = Not Assessed Reviewed: TMS Tech Note Reviewed Verification: I have reviewed the TMS Park Interpretive Specialist Note and agree with the contents. The patient remains a candidate to continue TMS treatment per protocol. Assessment and Plan (1) Major depressive disorder, recurrent severe without psychotic features: Status: Acute Plan Continue plan of care patient generally tolerating TMS has been having some physical symptoms unrelated
--- NOTE | 2025-01-22 00:11 | HO.TMSDAILY2 ---
TMS Daily Progress Note Daily TMS Progress Note Date of Service: 01/22/25 Week #: 3 Treatment #(10-25): 11 PHQ-9 Pre-Treatment (1-): 25 PHQ-9 Most Recent (10-22): 10 YOVANI-7 Pre-Treatment (0-21): 19 YOVANI-7 Most Recent (0-21): 0 CGI-I Most Recent: 0 = Not Assessed Reviewed: TMS Tech Note Reviewed Verification: I have reviewed the TMS Box Worker Note and agree with the contents. The patient remains a candidate to continue TMS treatment per protocol. Assessment and Plan (1) Major depressive disorder, recurrent severe without psychotic features: Status: Acute Plan Continue plan of care patient generally tolerating TMS unhappy regarding work situation
--- NOTE | 2025-01-22 00:11 | HO.TMSDAILY2 ---
TMS Daily Progress Note Daily TMS Progress Note Date of Service: 12/21/24 Week #: 3 Treatment #(-): 12 PHQ-9 Pre-Treatment (1-): 25 PHQ-9 Most Recent (10-22): 10 YOVANI-7 Pre-Treatment (0-21): 19 YOVANI-7 Most Recent (0-21): 0 CGI-I Most Recent: 0 = Not Assessed Reviewed: TMS Tech Note Reviewed Verification: I have reviewed the TMS Lumber Stacker Note and agree with the contents. The patient remains a candidate to continue TMS treatment per protocol. Assessment and Plan (1) Major depressive disorder, recurrent severe without psychotic features: Status: Acute Plan Continue plan of care patient generally tolerating tx no complaints of side effects. Patient does feel some increase energy
--- NOTE | 2025-01-22 00:11 | HO.TMSDAILY2 ---
TMS Daily Progress Note Daily TMS Progress Note Date of Service: 12/25/24 Week #: 3 Treatment #(10-25): 13 PHQ-9 Pre-Treatment (1-): 25 PHQ-9 Most Recent (10-22): 1 YOVANI-7 Pre-Treatment (0-21): 19 YOVANI-7 Most Recent (0-21): 0 CGI-I Most Recent: 0 = Not Assessed Reviewed: TMS Tech Note Reviewed Verification: I have reviewed the TMS Buckle Sewer Note and agree with the contents. The patient remains a candidate to continue TMS treatment per protocol. Assessment and Plan (1) Major depressive disorder, recurrent severe without psychotic features: Status: Acute Plan Continue plan of care patient generally tolerating tx no complaints of side effects. Patient does show improvement in PHQ-9. Patient does have significant asthma was in the emergency room the other day from work because of the asthma attack.
--- NOTE | 2025-01-22 00:12 | HO.TMSDAILY2 ---
TMS Daily Progress Note Daily TMS Progress Note Date of Service: 12/26/24 Week #: 3 Treatment #(-): 14 PHQ-9 Pre-Treatment (1-): 25 PHQ-9 Most Recent (10-22): 1 YOVANI-7 Pre-Treatment (0-21): 19 YOVANI-7 Most Recent (0-21): 0 CGI-I Most Recent: 0 = Not Assessed Reviewed: TMS Tech Note Reviewed Verification: I have reviewed the TMS Managing Manager Note and agree with the contents. The patient remains a candidate to continue TMS treatment per protocol. Assessment and Plan (1) Major depressive disorder, recurrent severe without psychotic features: Status: Acute Plan Continue plan of care patient generally tolerating tx no complaints of side effects. Patient does show improvement in PHQ-9. Patient does have significant asthma was in the emergency room the other day had follow-up with his primary care. Continues to feel TMS helpful
--- NOTE | 2025-01-22 14:14 | P.PNPS_ITS ---
TMS Daily Progress Note Daily TMS Progress Note Date of Service: 12/27/24 Week #: 3 Treatment #(-): 15 PHQ-9 Pre-Treatment (1-): 25 PHQ-9 Most Recent (10-22): 1 YOVANI-7 Pre-Treatment (0-21): 19 YOVANI-7 Most Recent (0-21): 0 CGI-I Most Recent: 0 = Not Assessed Reviewed: TMS Tech Note Reviewed Verification: I have reviewed the TMS Pc Network Technician Note and agree with the contents. The patient remains a candidate to continue TMS treatment per protocol. Assessment and Plan (1) Major depressive disorder, recurrent severe without psychotic features: Status: Acute Plan Patient tolerating treatment PHQ-9 decreased continues to have periods of interpersonal reactivity
--- NOTE | 2025-01-22 14:17 | HO.TMSDAILY2 ---
TMS Daily Progress Note Daily TMS Progress Note Date of Service: 12/28/24 Week #: 4 Treatment #(-): 16 PHQ-9 Pre-Treatment (1-27): 25 PHQ-9 Most Recent (10-22): 1 YOVANI-7 Pre-Treatment (0-21): 19 YOVANI-7 Most Recent (0-21): 0 CGI-I Most Recent: 0 = Not Assessed Reviewed: TMS Tech Note Reviewed Verification: I have reviewed the TMS Utilization Coordinator Note and agree with the contents. The patient remains a candidate to continue TMS treatment per protocol. Assessment and Plan (1) Major depressive disorder, recurrent severe without psychotic features: Status: Acute Plan Patient tolerating treatment PHQ-9 decreased continues to have periods of interpersonal reactivity irritability
--- NOTE | 2025-01-22 14:31 | HO.TMSDAILY2 ---
TMS Daily Progress Note Daily TMS Progress Note Date of Service: 12/31/24 Week #: 4 Treatment #(-): 17 PHQ-9 Pre-Treatment (1-): 25 PHQ-9 Most Recent (10-22): 3 YOVANI-7 Pre-Treatment (0-21): 19 YOVANI-7 Most Recent (0-21): 0 CGI-I Most Recent: 0 = Not Assessed Reviewed: TMS Tech Note Reviewed Verification: I have reviewed the TMS Boil Off Machine Operator Cloth Note and agree with the contents. The patient remains a candidate to continue TMS treatment per protocol. Assessment and Plan (1) Major depressive disorder, recurrent severe without psychotic features: Status: Acute Plan Patient tolerating treatment PHQ-9 decreased continues to have periods of reactivity
--- NOTE | 2025-01-22 14:31 | HO.TMSDAILY2 ---
TMS Daily Progress Note Daily TMS Progress Note Date of Service: 01/01/25 Week #: 4 Treatment #(10-25): 18 PHQ-9 Pre-Treatment (1-): 25 PHQ-9 Most Recent (10-22): 1 YOVANI-7 Pre-Treatment (0-21): 19 YOVANI-7 Most Recent (0-21): 0 CGI-I Most Recent: 0 = Not Assessed Reviewed: TMS Tech Note Reviewed Verification: I have reviewed the TMS High Energy Forming Equipment Operator Note and agree with the contents. The patient remains a candidate to continue TMS treatment per protocol. Assessment and Plan (1) Major depressive disorder, recurrent severe without psychotic features: Status: Acute Plan Patient tolerating treatment PHQ-9 decreased continues to have periods of reactivity tolerating treatment well
--- NOTE | 2025-01-22 14:31 | HO.TMSDAILY2 ---
TMS Daily Progress Note Daily TMS Progress Note Date of Service: 01/22/25 Week #: 4 Treatment #(10-25): 19 PHQ-9 Pre-Treatment (1-): 25 PHQ-9 Most Recent (10-22): 1 YOVANI-7 Pre-Treatment (0-21): 19 YOVANI-7 Most Recent (0-21): 0 CGI-I Most Recent: 0 = Not Assessed Reviewed: TMS Tech Note Reviewed Verification: I have reviewed the TMS Heating Element Builder Note and agree with the contents. The patient remains a candidate to continue TMS treatment per protocol. Assessment and Plan (1) Major depressive disorder, recurrent severe without psychotic features: Status: Acute Plan Patient tolerating treatment PHQ-9 decreased continues to have periods of reactivity tolerating treatment well
--- NOTE | 2025-01-22 14:32 | P.PNPS_ITS ---
TMS Daily Progress Note Daily TMS Progress Note Date of Service: 01/08/25 Week #: 5 Treatment #(-): 23 PHQ-9 Pre-Treatment (1-): 25 PHQ-9 Most Recent (10-22): 1 YOVANI-7 Pre-Treatment (0-21): 19 YOVANI-7 Most Recent (0-21): 0 CGI-I Most Recent: 0 = Not Assessed Reviewed: TMS Tech Note Reviewed Verification: I have reviewed the TMS Regional Economist Note and agree with the contents. The patient remains a candidate to continue TMS treatment per protocol. Assessment and Plan (1) Major depressive disorder, recurrent severe without psychotic features: Status: Acute Plan mood improved dealing with some difficult life circumstance related to work cont tx plan
--- NOTE | 2025-01-22 14:44 | P.PNPS_ITS ---
TMS Daily Progress Note Daily TMS Progress Note Date of Service: 01/07/25 Week #: 5 Treatment #(-): 22 PHQ-9 Pre-Treatment (-): 25 PHQ-9 Most Recent (10-22): 0 YOVANI-7 Pre-Treatment (0-21): 19 YOVANI-7 Most Recent (0-21): 0 CGI-I Most Recent: 0 = Not Assessed Reviewed: TMS Tech Note Reviewed Verification: I have reviewed the TMS Boiler/Chiller Technician Note and agree with the contents. The patient remains a candidate to continue TMS treatment per protocol. Assessment and Plan (1) Major depressive disorder, recurrent severe without psychotic features: Status: Acute Plan mood improved dealing with some difficult life circumstance related to work cont tx plan
--- NOTE | 2025-01-22 14:44 | HO.TMSDAILY2 ---
TMS Daily Progress Note Daily TMS Progress Note Date of Service: 01/04/25 Week #: 5 Treatment #(-): 21 PHQ-9 Pre-Treatment (1-): 25 PHQ-9 Most Recent (10-22): 3 YOVANI-7 Pre-Treatment (0-21): 19 YOVANI-7 Most Recent (0-21): 0 CGI-I Most Recent: 0 = Not Assessed Reviewed: TMS Tech Note Reviewed Verification: I have reviewed the TMS Social Media Intern Note and agree with the contents. The patient remains a candidate to continue TMS treatment per protocol. Assessment and Plan (1) Major depressive disorder, recurrent severe without psychotic features: Status: Acute Plan mood improved dealing with some difficult life circumstance cont tx
--- NOTE | 2025-01-22 14:44 | HO.TMSDAILY2 ---
TMS Daily Progress Note Daily TMS Progress Note Date of Service: 01/09/25 Week #: 5 Treatment #(-): 24 PHQ-9 Pre-Treatment (1-): 25 PHQ-9 Most Recent (10-22): 3 YOVANI-7 Pre-Treatment (0-21): 19 YOVANI-7 Most Recent (0-21): 0 CGI-I Most Recent: 0 = Not Assessed Reviewed: TMS Tech Note Reviewed Verification: I have reviewed the TMS Sourcer Note and agree with the contents. The patient remains a candidate to continue TMS treatment per protocol. Assessment and Plan (1) Major depressive disorder, recurrent severe without psychotic features: Status: Acute Plan Continue plan of care improvement noted
--- NOTE | 2025-01-22 15:05 | HO.TMSDAILY2 ---
TMS Daily Progress Note Daily TMS Progress Note Date of Service: 01/10/25 Week #: 5 Treatment #(-): 25 PHQ-9 Pre-Treatment (1-): 25 PHQ-9 Most Recent (10-22): 0 YOVANI-7 Pre-Treatment (0-21): 19 YOVANI-7 Most Recent (0-21): 0 CGI-I Most Recent: 0 = Not Assessed Reviewed: TMS Tech Note Reviewed Verification: I have reviewed the TMS Bag Shop Worker Note and agree with the contents. The patient remains a candidate to continue TMS treatment per protocol. Assessment and Plan (1) Major depressive disorder, recurrent severe without psychotic features: Status: Acute Plan Continue plan of care improvement noted patient does seem to have some degree of chronic interpersonal issues
--- NOTE | 2025-01-22 15:06 | HO.TMSDAILY2 ---
TMS Daily Progress Note Daily TMS Progress Note Date of Service: 01/11/25 Week #: 6 Treatment #(-): 26 PHQ-9 Pre-Treatment (-): 25 PHQ-9 Most Recent (10-22): 0 YOVANI-7 Pre-Treatment (0-21): 19 YOVANI-7 Most Recent (0-21): 0 CGI-I Most Recent: 0 = Not Assessed Reviewed: TMS Tech Note Reviewed Verification: I have reviewed the TMS Planetarium Technician Note and agree with the contents. The patient remains a candidate to continue TMS treatment per protocol. Assessment and Plan (1) Major depressive disorder, recurrent severe without psychotic features: Status: Acute Plan Continue plan of care improvement noted patient does seem to have some degree of chronic interpersonal issues
--- NOTE | 2025-01-22 15:06 | HO.TMSDAILY2 ---
TMS Daily Progress Note Daily TMS Progress Note Date of Service: 01/16/25 Week #: 6 Treatment #(-): 27 PHQ-9 Pre-Treatment (1-): 25 PHQ-9 Most Recent (10-22): 0 YOVANI-7 Pre-Treatment (0-21): 19 YOVANI-7 Most Recent (0-21): 0 CGI-I Most Recent: 0 = Not Assessed Reviewed: TMS Tech Note Reviewed Verification: I have reviewed the TMS Designer And Patternmaker Note and agree with the contents. The patient remains a candidate to continue TMS treatment per protocol. Assessment and Plan (1) Major depressive disorder, recurrent severe without psychotic features: Status: Acute Plan Continue plan of care improvement noted patient does seem to have some degree of chronic interpersonal issues
--- NOTE | 2025-01-22 15:17 | P.PNPS_ITS ---
TMS Daily Progress Note Daily TMS Progress Note Date of Service: 01/17/25 Week #: 6 Treatment #(-): 28 PHQ-9 Pre-Treatment (1-): 25 PHQ-9 Most Recent (10-22): 1 YOVANI-7 Pre-Treatment (0-21): 19 YOVANI-7 Most Recent (0-21): 0 CGI-I Most Recent: 0 = Not Assessed Reviewed: TMS Tech Note Reviewed Verification: I have reviewed the TMS Assistant Infant Toddler Teacher Note and agree with the contents. The patient remains a candidate to continue TMS treatment per protocol. Assessment and Plan (1) Major depressive disorder, recurrent severe without psychotic features: Status: Acute Plan Continue plan of care improvement noted patient does seem to have some degree of chronic interpersonal issues
--- NOTE | 2025-01-22 15:17 | P.PNPS_ITS ---
TMS Daily Progress Note Daily TMS Progress Note Date of Service: 01/23/25 Week #: 6 Treatment #(-): 30 PHQ-9 Pre-Treatment (-): 25 PHQ-9 Most Recent (10-22): 3 YOVANI-7 Pre-Treatment (0-21): 19 YOVANI-7 Most Recent (0-21): 0 CGI-I Most Recent: 0 = Not Assessed Reviewed: TMS Tech Note Reviewed Verification: I have reviewed the TMS Dipping Machine Operator Note and agree with the contents. The patient remains a candidate to continue TMS treatment per protocol. Assessment and Plan (1) Major depressive disorder, recurrent severe without psychotic features: Status: Acute Plan pt with some inc life stressors tolerating tx frustrated by work dental issues no self harm phq 9 has decreased
--- NOTE | 2025-01-22 15:17 | P.PNPS_ITS ---
TMS Daily Progress Note Daily TMS Progress Note Date of Service: 01/18/25 Week #: 6 Treatment #(-): 29 PHQ-9 Pre-Treatment (1-): 25 PHQ-9 Most Recent (10-22): 1 YOVANI-7 Pre-Treatment (0-21): 19 YOVANI-7 Most Recent (0-21): 0 CGI-I Most Recent: 0 = Not Assessed Reviewed: TMS Tech Note Reviewed Verification: I have reviewed the TMS Pie Cutter Note and agree with the contents. The patient remains a candidate to continue TMS treatment per protocol. Assessment and Plan (1) Major depressive disorder, recurrent severe without psychotic features: Status: Acute Plan Continue plan of care improvement noted patient does seem to have some degree of chronic interpersonal issues
--- NOTE | 2025-01-22 15:17 | HO.TMSDAILY2 ---
TMS Daily Progress Note Daily TMS Progress Note Date of Service: 01/24/25 Week #: 7 Treatment #(-): 31 PHQ-9 Pre-Treatment (1-): 25 PHQ-9 Most Recent (10-22): 3 YOVANI-7 Pre-Treatment (0-21): 19 YOVANI-7 Most Recent (0-21): 0 CGI-I Most Recent: 0 = Not Assessed Reviewed: TMS Tech Note Reviewed Verification: I have reviewed the TMS Summer Camp Counselor Note and agree with the contents. The patient remains a candidate to continue TMS treatment per protocol. Assessment and Plan (1) Major depressive disorder, recurrent severe without psychotic features: Status: Acute (2) YOVANI (generalized anxiety disorder): Status: Acute Plan cont plan of care some upset re recent dental care otherwise yovani phq9 have markedly improved
--- NOTE | 2025-01-30 09:36 | P.PNPS_ITS ---
TMS Daily Progress Note Daily TMS Progress Note Date of Service: 01/30/25 Week #: 7 Treatment #(10-25): 32 PHQ-9 Pre-Treatment (1-): 25 PHQ-9 Most Recent (10-22): 11 YOVANI-7 Pre-Treatment (0-21): 19 YOVANI-7 Most Recent (0-21): 0 CGI-I Most Recent: 0 = Not Assessed Reviewed: TMS Tech Note Reviewed Verification: I have reviewed the TMS Pewter Finisher Note and agree with the contents. The patient remains a candidate to continue TMS treatment per protocol. Assessment and Plan (1) Major depressive disorder, recurrent severe without psychotic features: Status: Acute (2) YOVANI (generalized anxiety disorder): Status: Acute Plan pt under some significant situational stress pt does have therapist
== END 2025-01-30 14:30 ==
LOC: HO.PTMS 14:30
PROVIDERS: Visit Provider Clinical Nurse Specialist Psychiatric/Mental Health
DX: F33.2 Major depressive disorder, recurrent severe without psychotic features (principal); F41.1 Generalized anxiety disorder
CPT/HCPCS: 90867; 90868